=== PATIENT | female | born 1980 | race Caucasian/White ===

== ENCOUNTER 2016-11-18 19:59 | Emergency (ER) | payer SELFPAY ==
--- NOTE | 2016-11-18 20:12 | ER Document Report ---
ED Medical Screen (RME) - General Chief Complaint: Urinary Frequency Stated Complaint: POSSIBLE UTI Time Seen by Provider: 11/18/16 20:10 Notes: Patient has been having symptoms of urinary tract infection for the past 2 weeks. She is having frequency, burning, stinging, etc. She has been taking [id number] Pyridium without any relief of her symptoms. Has not had a fever. No vomiting. No flank pain. Looks well. History of appendectomy, C-sections. On no regular prescription medications. TRAVEL OUTSIDE OF THE [place] IN LAST 30 DAYS: No - Related Data Allergies/Adverse Reactions: promethazine HCl [From Phenergan] Allergy (Severe, Verified 11/18/16 20:03) Anaphylaxis Past Medical History Pulmonary Medical History: Reports: Hx Asthma Renal/ Medical History: Denies: Hx Peritoneal Dialysis Past Surgical History: Reports: Hx Appendectomy, Hx Section - x2, Hx Tubal Ligation - Immunizations Hx Diphtheria, Pertussis, Tetanus Vaccination: Yes Physical Exam - Vital signs Vitals: Temp Pulse Resp BP Pulse Ox 97.8 F 88 18 127/83 H 98 11/18/16 20:04 11/18/16 20:04 11/18/16 20:04 11/18/16 20:04 11/18/16 20:04 Course - Vital Signs Vital signs: Temp Pulse Resp BP Pulse Ox 97.8 F 88 18 127/83 H 98 11/18/16 20:04 11/18/16 20:04 11/18/16 20:04 11/18/16 20:04 11/18/16 20:04
[2016-11-18] MEDS ORDERED: PREDNISONE 20 MG TABLET PO ONE (20:29)
[2016-11-18] MEDS ORDERED: IBUPROFEN 600 MG TABLET PO ONE (20:29)
[2016-11-18] MEDS: ALBUTEROL SULFATE 0.083% NEB 2.5 MG/3 ML AMPUL NEB SCH ×2 (20:35→20:50)
[2016-11-18 20:52] LABS: APPEARANCE,URINE SLIGHTLY-CLOUDY; BILIRUBIN,URINE NEGATIVE (NEGATIVE); GLUCOSE, URINE NEGATIVE (NEGATIVE); KETONES,URINE NEGATIVE (NEGATIVE); LEUKOCYTE ESTERASE,URINE SMALL (NEGATIVE); NITRITE,URINE POSITIVE (NEGATIVE); PROTEIN,URINE 30 mg/dL (NEGATIVE); URINE SPECIFIC GRAVITY 1.011
[2016-11-18] MEDS ORDERED: NITROFURANTOIN MONOHYD/M-CRYST 100 MG CAPSULE PO ONE (20:57)
--- NOTE | 2016-11-18 21:06 | ER Document Report ---
ED GI/ - General Chief Complaint: Urinary Frequency Stated Complaint: POSSIBLE UTI Time Seen by Provider: 11/18/16 20:10 Mode of Arrival: Ambulatory Information source: Patient Notes: 36-year-old female presents to ED for complaints of burning with urination with frequency. She has been taken Azo [id number] for the last 2 weeks and the pain is gotten worse. Has a history of asthma states she has been very active today TRAVEL OUTSIDE OF THE [place] IN LAST 30 DAYS: No - HPI Patient complains to provider of: Other - Pain frequency and urgency with urination Onset: Other - 8 Timing/Duration: Intermittent, Worse Quality of pain: Burning Severity at maximum: Severe Severity in ED: Severe Pain Level: 5 Location: Other - Urination Vaginal bleeding (Compared to normal period): None Associated symptoms: Urinary frequency, Urinary urgency, Other - With urination Exacerbated by: Other - Urination Relieved by: Denies Similar symptoms previously: Yes Recently seen / treated by doctor: No - Related Data Allergies/Adverse Reactions: promethazine HCl [From Phenergan] Allergy (Severe, Verified 11/18/16 20:03) Anaphylaxis Past Medical History - General Information source: Patient - Social History Smoking Status: Current Every Day Smoker Cigarette use (# per day): Yes - 1/2-1 pack per day Chew tobacco use (# tins/day): No Smoking Education Provided: Yes - Less than 2 minutes Frequency of alcohol use: Social Drug Abuse: None Occupation: [employer] Lives with: Family Family History: Malignancy, Thyroid Disfunction. denies: Arthritis, CAD, COPD, CVA, DM, Hyperlipidemia, Hypertension Patient has suicidal ideation: No Patient has homicidal ideation: No - Past Medical History Cardiac Medical History: Reports: None Pulmonary Medical History: Reports: Hx Asthma EENT Medical History: Reports: None Neurological Medical History: Reports: Hx Migraine Endocrine Medical History: Reports: None Renal/ Medical History: Reports: None Malignancy Medical History: Reports: None GI Medical History: Reports: Hx Gastroesophageal Reflux Disease Musculoskeltal Medical History: Reports Hx Arthritis, Reports Hx Musculoskeletal Trauma Skin Medical History: Reports Hx MRSA Psychiatric Medical History: Reports: None Traumatic Medical History: Reports: Hx Fractures - Jaw Infectious Medical History: Reports: Hx MRSA Past Surgical History: Reports: Hx Appendectomy, Hx Section - x2, Hx Nose Surgery - Sinus surgery, Hx Tubal Ligation - Immunizations Hx Diphtheria, Pertussis, Tetanus Vaccination: Yes Review of Systems - Review of Systems Constitutional: No symptoms reported EENT: No symptoms reported Cardiovascular: No symptoms reported Respiratory: No symptoms reported Gastrointestinal: No symptoms reported Genitourinary: Burning, Frequency, Urgency Female Genitourinary: No symptoms reported Musculoskeletal: No symptoms reported Skin: No symptoms reported Hematologic/Lymphatic: No symptoms reported Neurological/Psychological: No symptoms reported -: Yes All other systems reviewed and negative Physical Exam - Vital signs Vitals: Temp Pulse Resp BP Pulse Ox 97.8 F 88 18 127/83 H 98 11/18/16 20:04 11/18/16 20:04 11/18/16 20:04 11/18/16 20:04 11/18/16 20:04 Interpretation: Normal - General General appearance: Appears well, Alert - HEENT Head: Normocephalic, Atraumatic Eyes: Normal Pupils: PERRL - Respiratory Respiratory status: No respiratory distress Chest status: Nontender Breath sounds: Nonproductive cough, Wheezing Chest palpation: Normal - Cardiovascular Rhythm: Regular Heart sounds: Normal auscultation Murmur: No - Abdominal Inspection: Normal Distension: No distension Bowel sounds: Normal Tenderness: Nontender Organomegaly: No organomegaly Notes: With urination burning frequency urgency - Back Back: Normal, Nontender - Extremities General upper extremity: Normal inspection, Nontender, Normal color, Normal ROM , Normal temperature General lower extremity: Normal inspection, Nontender, Normal color, Normal ROM , Normal temperature, Normal weight bearing. No: Glenys's sign - Neurological Neuro grossly intact: Yes Cognition: Normal Orientation: AAOx4 Sabrina Coma Scale Eye Opening: Spontaneous Sabrina Coma Scale Verbal: Oriented Dunlevy Coma Scale Motor: Obeys Commands Dunlevy Coma Scale Total: 15 Speech: Normal Motor strength normal: LUE, RUE, LLE, RLE Sensory: Normal - Psychological Associated symptoms: Normal affect, Normal mood - Skin Skin Temperature: Warm Skin Moisture: Dry Skin Color: Normal Course - Re-evaluation Re-evalutation: 11/18/16 21:14 The history of asthma and his wheezing went on assessment. Positive for UTI. Patient treated with Macrobid prednisone and ibuprofen and albuterol. Patient sent home with prescriptions for albuterol prednisone and Macrobid. Patient to follow-up with primary doctor. - Vital Signs Vital signs: Temp Pulse Resp BP Pulse Ox 97.8 F 88 18 127/83 H 98 11/18/16 20:04 11/18/16 20:04 11/18/16 20:04 11/18/16 20:04 11/18/16 20:04 - Laboratory Laboratory results interpreted by me: 11/18/16 20:26 Urine Protein 30 H Urine Nitrite POSITIVE H Urine Urobilinogen 4.0 H Ur Leukocyte Esterase SMALL H Urine Ascorbic Acid 20 H Discharge - Discharge Clinical Impression: UTI (urinary tract infection) Qualifiers: Urinary tract infection type: site unspecified Hematuria presence: without hematuria Qualified Code(s): N39.0 - Urinary tract infection, site not specified Asthma Qualifiers: Asthma severity: unspecified severity Asthma complication type: with acute exacerbation Qualified Code(s): J45.901 - Unspecified asthma with (acute) exacerbation Condition: Stable Disposition: HOME, SELF-CARE Instructions: Family Physicians / Practices Additional Instructions: URINARY TRACT INFECTION: Your evaluation indicates that you have a urinary tract infection. This is due to germs growing in the bladder. This is a common problem. This infection usually responds quickly to antibiotics. Your antibiotic should be taken exactly as prescribed. Drink plenty of fluids -- three to four quarts a day. Occasionally, a bladder anesthetic will be prescribed to help stop the feeling of urgency until the antibiotic has a chance to clear the infection. This may cause your urine to be dark orange. Certain urine infections require a culture. If the doctor obtained a culture, the results will be back in two days. You should call to see if a change in treatment is needed. A repeat urinalysis after you finish treatment is often recommended. The physician will let you know if further testing is required. Call the doctor if you develop fever, chills, flank pain, inability to urinate, or blood in the urine. ASTHMA: You have been diagnosed as having asthma. This is a condition where there is episodic tightness in the bronchial tubes. Allergies, infections, and polluted or cold air may be contributing factors. Emergency treatment of a severe asthma attack may include adrenaline shots , or bronchodilator aerosol. You may feel lightheaded, have a decreased exercise tolerance and a rapid pulse for an hour or two. Rest and get plenty of fluids. Home treatment of asthma requires bronchodilator drugs. These can be administered by injection, inhalation, or by mouth. Antibiotics and corticosteroids may be required for some patients. You should avoid chemical fumes, dusts, pollens, and exercising in very cold or dry air. If you smoke, stop!! If you develop a fever, increased wheezing, chest pain, or severe shortness of breath, you should contact the doctor immediately. STEROID MEDICATION: You have been given an injection of or oral medicine of the cortisone/ steroid class. This medication is used to control inflammation or allergy. Anant t is usually only given for a short period of time, until the acute process subsides. There are usually no side effects from short-term use of cortisone-like medications. Some persons feel an increased sense of well-being and are not sleepy at bedtime. Long-term use of cortisone medications is best avoided, unless required for a severe condition. If your condition does not remit, or relapses after the course of corticosteroid medication, you should consult your physician. INHALED BRONCHODILATORS: You have received treatment(s) of and/or prescription for an inhaled bronchodilator -- a medication which stimulates the airways in the lung to dilate. This improves the flow of air in asthma, bronchitis, and emphysema. These medicines have some similarity to adrenaline, and can cause similar side effects: shakiness, racing heart, and a sense of nervousness. These side effects decrease with time. Contact your doctor if these side effects are severe. Do not over-use the medicine. Too-frequent use of the inhaler may make it ineffective. Call your doctor if the inhaler is not controlling your symptoms at the prescribed doses. SMOKING: If you smoke, you should stop smoking. The tar and chemicals in cigarette smoke are harmful. Smoking has been shown to cause: emphysema chronic bronchitis lung cancer mouth and throat cancer stomach and pancreas cancer premature aging defects In addition, smoking increases ear and lung infections in children of smokers. NITROFURANTOIN (MACRODANTIN, MACROBID): You have received a prescription for nitrofurantoin (Macrodantin). This antibiotic is used for urinary tract infections. Women who are or nursing should notify the physician before taking this medicine. If you have ever had a problem caused by this medication in the past, be sure the physician is aware of it. Common side effects of this medicine include nausea, vomiting, or decreased appetite. Notify your physician if these side effects become severe. Immediately stop this medicine and call the physician if you develop cough , shortness of breath, chest pain, weakness, jaundice (yellow color of the skin and whites of the eyes), or a skin rash. FOLLOW-UP CARE: If you have been referred to a physician for follow-up care, call the physician s office for an appointment as you were instructed or within the next two days. If you experience worsening or a significant change in your symptoms, notify the physician immediately or return to the Emergency Department at any time for re-evaluation. Prescriptions: Albuterol Sulfate [Proair HFA Inhalation Aerosol 8.5 gm MDI] 2 puff IH Q4H PRN # 1 mdi PRN Reason: Nitrofurantoin/Nitrofuran Mac [Macrobid 100 mg Capsule] 1 tab PO BID #20 capsule Prednisone [Sterapred Ds] 1 pkg PO ASDIR PRN 12 Days PRN Reason: Forms: Smoking Cessation Education
[2016-11-18 21:15] VITALS: BP 124/73
== END 2016-11-18 21:16 | disposition home or self-care (01) ==
LOC: ER 19:59
DX: N39.0 Urinary tract infection, site not specified (principal); J45.901 Unspecified asthma with (acute) exacerbation; R35.0 Frequency of micturition; R30.9 Painful micturition, unspecified; F17.210 Nicotine dependence, cigarettes, uncomplicated
CPT/HCPCS: 94640 ×2; 99283; 87086; 87088; 81001; J7512

== ENCOUNTER 2017-04-26 22:56 | Emergency (ER) | payer SELFPAY ==
[2017-04-26 23:06] VITALS: BP 96/76
[2017-04-27 01:05] LABS: ABSOLUTE EOSINOPHILS # (AUTO) 0.6 10^3/uL (0.0-0.6); ABSOLUTE LYMPHOCYTES (AUTO) 3.1 10^3/uL (0.5-4.7); ABSOLUTE MONOCYTES (AUTO) 0.7 10^3/uL (0.1-1.4); ABSOLUTE NEUT (AUTO) 5.7 10^3/uL (1.7-8.2); BASOPHILS % (AUTO) 0.1 % (0-2); EOSINOPHILS % (AUTO) 5.8 % (0-6); HEMATOCRIT 40.6 % (36.0-47.0); HEMOGLOBIN 14.2 g/dL (12.0-15.5); LYMPHOCYTES % (AUTO) 30.5 % (13-45); MEAN CORPUSCULAR HEMOGLOBIN 35.1 pg (27.0-33.4); MEAN CORPUSCULAR HGB CONC 34.9 g/dL (32.0-36.0); MEAN CORPUSCULAR VOLUME 101 fl (80-97); MONOCYTES % (AUTO) 7.3 % (3-13); RED BLOOD COUNT 4.04 10^6/uL (3.72-5.28); RED CELL DISTRIBUTION WIDTH 12.9 % (11.5-14.0); SEGMENTED NEUTROPHILS % (AUTO) 56.3 % (42-78); WHITE BLOOD COUNT 10.2 10^3/uL (4.0-10.5)
[2017-04-27 01:21] LABS: APPEARANCE,URINE CLEAR; BILIRUBIN,URINE NEGATIVE (NEGATIVE); GLUCOSE, URINE NEGATIVE (NEGATIVE); KETONES,URINE NEGATIVE (NEGATIVE); LEUKOCYTE ESTERASE,URINE NEGATIVE (NEGATIVE); NITRITE,URINE NEGATIVE (NEGATIVE); PROTEIN,URINE NEGATIVE (NEGATIVE); URINE SPECIFIC GRAVITY 1.028; UROBILINOGEN,URINE NEGATIVE mg/dL (<2.0)
[2017-04-27 01:27] LABS: ALANINE AMINOTRANSFERASE 19 U/L (9-52); ALBUMIN 4.6 g/dL (3.5-5.0); ALKALINE PHOSPHATASE 92 U/L (38-126); ANION GAP 13 (5-19); ASPARTATE AMINO TRANSFERASE 18 U/L (14-36); BILIRUBIN,DIRECT 0.1 mg/dL (0.0-0.4); BILIRUBIN,TOTAL 0.4 mg/dL (0.2-1.3); BLOOD UREA NITROGEN 16 mg/dL (7-20); CALCIUM 9.8 mg/dL (8.4-10.2); CARBON DIOXIDE 26 mmol/L (22-30); CHLORIDE 106 mmol/L (98-107); CREATININE RESULT 1.07 mg/dL (0.52-1.25); GLUCOSE 95 mg/dL (75-110); LIPASE 124.4 U/L (23-300); POTASSIUM 3.5 mmol/L (3.6-5.0); SODIUM 144.5 mmol/L (137-145); TOTAL PROTEIN 7.4 g/dL (6.3-8.2)
[2017-04-27] MEDS ORDERED: LORAZEPAM 1 MG TABLET PO ONE (02:11)
--- NOTE | 2017-04-27 02:12 | ER Document Report ---
ED General - General Chief Complaint: Foreign Body in Vagina Stated Complaint: STOMACH PAIN Time Seen by Provider: 04/27/17 00:23 Mode of Arrival: Ambulatory Information source: Patient Notes: Patient is a 36-year-old female comes emergency room with her boyfriend and states that this morning patient started with her. When her boyfriend came back to bed he got excited and they had intercourse. Patient forgot to tell them that she had a tampax inserted and did not think about it until after she was completely done. She states that they have attempted to find it today and are unable to. Patient states that she was embarrassed to come in but since he could not find it they felt it necessary. Patient denies any fevers or any discharges. States that it has been less than 10-12 hours. TRAVEL OUTSIDE OF THE [place] IN LAST 30 DAYS: No - HPI Patient complains to provider of: Foreign body vagina Onset: This morning - Proximately 10-12 hours in vaginal tract Onset/Duration: Sudden Quality of pain: No pain Severity: Mild Pain Level: 1 Associated symptoms: None Exacerbated by: Denies Relieved by: Denies Similar symptoms previously: No Recently seen / treated by doctor: No - Related Data Allergies/Adverse Reactions: promethazine HCl [From Phenergan] Allergy (Severe, Verified 11/18/16 20:03) Anaphylaxis Past Medical History - General Information source: Patient - Social History Smoking Status: Current Some Day Smoker Cigarette use (# per day): Yes - Half-pack a day Chew tobacco use (# tins/day): No Frequency of alcohol use: Rare Drug Abuse: None Family History: Malignancy, Thyroid Disfunction. denies: Arthritis, CAD, COPD, CVA, DM, Hyperlipidemia, Hypertension Patient has suicidal ideation: No Patient has homicidal ideation: No Pulmonary Medical History: Reports: Hx Asthma Neurological Medical History: Reports: Hx Migraine Renal/ Medical History: Denies: Hx Peritoneal Dialysis GI Medical History: Reports: Hx Gastroesophageal Reflux Disease Musculoskeltal Medical History: Reports Hx Arthritis, Reports Hx Musculoskeletal Trauma Skin Medical History: Reports Hx MRSA Traumatic Medical History: Reports: Hx Fractures - Jaw Infectious Medical History: Reports: Hx MRSA Past Surgical History: Reports: Hx Appendectomy, Hx Section - x2, Hx Nose Surgery - Sinus surgery, Hx Tubal Ligation - Immunizations Hx Diphtheria, Pertussis, Tetanus Vaccination: Yes Review of Systems - Review of Systems Constitutional: No symptoms reported EENT: No symptoms reported Cardiovascular: No symptoms reported Respiratory: No symptoms reported Gastrointestinal: No symptoms reported Genitourinary: No symptoms reported Female Genitourinary: Vaginal odor - Complaint of foreign body and vaginal canal Musculoskeletal: No symptoms reported Skin: No symptoms reported Hematologic/Lymphatic: No symptoms reported Neurological/Psychological: No symptoms reported -: Yes All other systems reviewed and negative Physical Exam - Vital signs Vitals: Temp Pulse Resp BP Pulse Ox 97.8 F 65 16 96/76 L 99 04/26/17 23:04 04/26/17 23:04 04/26/17 23:04 04/26/17 23:04 04/26/17 23:04 Interpretation: Hypotensive, Other - Nonsymptomatic patient is awake alert and oriented says her blood pressure usually runs low. - General General appearance: Appears well - Respiratory Respiratory status: No respiratory distress Chest status: Nontender Breath sounds: Normal. No: Decreased air movement, Nonproductive cough, Productive cough, Rales, Rhonchi, Stridor, Wheezing, Other - Cardiovascular Rhythm: Regular Heart sounds: Normal auscultation Murmur: No - Genitourinary External exam: Normal Speculum exam: Cervix closed, Other - Pelvic exam shows that there is a tampon wedged in the vaginal vault. With forceps I removed it without any disruption or any discomfort or pain. Once out I was able to examine the vaginal canal and the vaginal vault cervix all appears normal there is no discharge slight amount of tinged blood coming from the office secondary to patient's menstrual period but no sign of any type of infection the Vaginal bleeding: Moderate - Neurological Neuro grossly intact: Yes Cognition: Normal Orientation: AAOx4 Sabrina Coma Scale Eye Opening: Spontaneous Sabrina Coma Scale Verbal: Oriented Sabrina Coma Scale Motor: Obeys Commands Sabrina Coma Scale Total: 15 Speech: Normal Course - Vital Signs Vital signs: Temp Pulse Resp BP Pulse Ox 97.8 F 65 16 96/76 L 99 04/26/17 23:04 04/26/17 23:04 04/26/17 23:04 04/26/17 23:04 04/26/17 23:04 - Laboratory Result Diagrams: 04/27/17 00:50 04/27/17 00:50 Laboratory results interpreted by me: 04/27/17 04/27/1704/27/17 00:50 00:50 00:50 MCV 101 H MCH 35.1 H Potassium 3.5 L Est GFR (Non-Af Amer) 57 L Urine Blood SMALL H - Transfer of Care Notes: After pelvic exam was completed I felt that patient does not need antibiotic therapy at this time. She has normal-appearing tissue and the tampon is only and therefore 10 hours or less. 04/27/17 02:15 Patient's Discharge - Discharge Clinical Impression: Foreign body in vagina Qualifiers: Encounter type: initial encounter Qualified Code(s): T19.2XXA - Foreign body in vulva and vagina, initial encounter Condition: Good Disposition: HOME, SELF-CARE Instructions: Foreign Body ([facility]) Additional Instructions: Tampon removal, as we have discussed we removed a bloody tampon from your vaginal tract. The area is clean and there is no sign of any type of infection. Therefore you do not need to be on antibiotics at this present time. However should you spike a fever or have any increasing discomfort or discharge please return to ER for recheck. Forms: Smoking Cessation Education
== END 2017-04-27 02:30 | disposition home or self-care (01) ==
LOC: ER 22:56
DX: T19.2XXA Foreign body in vulva and vagina, initial encounter (principal); X58.XXXA Exposure to other specified factors, initial encounter; F17.210 Nicotine dependence, cigarettes, uncomplicated; J45.909 Unspecified asthma, uncomplicated; Z86.14 Personal history of Methicillin resistant Staphylococcus aureus infection; Z87.892 Personal history of anaphylaxis; Z88.8 Allergy status to other drugs, medicaments and biological substances
CPT/HCPCS: 36415; 80053; 81001; 81025; 83690; 85025; 99283

== ENCOUNTER 2017-08-15 19:56 | Emergency (ER) | payer SELFPAY ==
[2017-08-15] MEDS ORDERED: MORPHINE SULFATE IR 15 MG TABLET PO ONE (21:47)
[2017-08-15] MEDS ORDERED: SULFAMETHOXAZOLE/TRIMETHOPRIM 800-160 MG TABLET PO ONE (21:48)
[2017-08-15] MEDS ORDERED: CEPHALEXIN 500 MG CAPSULE PO ONE (21:48)
[2017-08-15] MEDS ORDERED: ACETAMINOPHEN 325 MG TABLET PO ONE (21:48)
[2017-08-15] MEDS ORDERED: IBUPROFEN 600 MG TABLET PO ONE (21:48)
--- NOTE | 2017-08-15 21:50 | ER Document Report ---
ED General - General Chief Complaint: Abscess Stated Complaint: RIGHT ARM/HAND PAIN Time Seen by Provider: 08/15/17 21:32 Notes: Patient is a 36 year old female with a history of multiple recurrences of MRSA abscesses who presents with 2 abscesses. She reports that one is in her left axilla and the other is on her left buttock. Patient states that these areas started several days ago and have become increasingly large and painful. She notes a severe, constant, throbbing pain to the affected areas worsened by touching them. Nothing improves the pain. She states this feels similar to when she has had abscesses in the past. She denies any fever or constitutional symptoms. She has not seen her primary care doctor regarding today's concerns. TRAVEL OUTSIDE OF THE [place] IN LAST 30 DAYS: No - Related Data Allergies/Adverse Reactions: promethazine HCl [From Phenergan] Allergy (Severe, Verified 11/18/16 20:03) Anaphylaxis Past Medical History - General Information source: Patient - Social History Smoking Status: Never Smoker Frequency of alcohol use: None Drug Abuse: None Lives with: Family Family History: Malignancy, Thyroid Disfunction. denies: Arthritis, CAD, COPD, CVA, DM, Hyperlipidemia, Hypertension Patient has suicidal ideation: No Patient has homicidal ideation: No Pulmonary Medical History: Reports: Hx Asthma Neurological Medical History: Reports: Hx Migraine Renal/ Medical History: Denies: Hx Peritoneal Dialysis GI Medical History: Reports: Hx Gastroesophageal Reflux Disease Musculoskeltal Medical History: Reports Hx Arthritis, Reports Hx Musculoskeletal Trauma Skin Medical History: Reports Hx MRSA Traumatic Medical History: Reports: Hx Fractures - Jaw Infectious Medical History: Reports: Hx MRSA Past Surgical History: Reports: Hx Appendectomy, Hx Section - x2, Hx Nose Surgery - Sinus surgery, Hx Tubal Ligation - Immunizations Hx Diphtheria, Pertussis, Tetanus Vaccination: Yes Review of Systems - Review of Systems Notes: Constitutional: Negative for fever. HENT: Negative for sore throat. Eyes: Negative for visual changes. Cardiovascular: Negative for chest pain. Respiratory: Negative for shortness of breath. Gastrointestinal: Negative for abdominal pain, vomiting or diarrhea. Genitourinary: Negative for dysuria. Musculoskeletal: Negative for back pain. Skin: Positive for multiple abscesses Neurological: Negative for headaches, weakness or numbness. 10 point ROS negative except as marked above and in HPI. Physical Exam - Vital signs Vitals: Temp Pulse Resp BP Pulse Ox 98.4 F 83 18 131/95 H 99 08/15/17 20:20 08/15/17 20:20 08/15/17 20:20 08/15/17 20:20 08/15/17 20:20 Interpretation: Normal Notes: PHYSICAL EXAMINATION: GENERAL: Well-appearing, well-nourished and in no acute distress. HEAD: Atraumatic, normocephalic. EYES: Pupils equal round and reactive to light, extraocular movements intact, sclera anicteric, conjunctiva are normal. ENT: nares patent, oropharynx clear without exudates. Moist mucous membranes. NECK: Normal range of motion, supple without lymphadenopathy LUNGS: Breath sounds clear to auscultation bilaterally and equal. No wheezes rales or rhonchi. HEART: Regular rate and rhythm without murmurs ABDOMEN: Soft, nontender, normoactive bowel sounds. No guarding, no rebound. No masses appreciated. EXTREMITIES: Normal range of motion, no pitting or edema. No cyanosis. NEUROLOGICAL: No focal neurological deficits. Moves all extremities spontaneously and on command. PSYCH: Normal mood, normal affect. SKIN: Warm, Dry, normal turgor, abscesses as described in course and procedure note Course - Re-evaluation Re-evalutation: 08/15/17 21:48 Patient presents with an abscess in 2 separate locations. She has a 1 x 2 cm abscess on her lower left buttock as well as a one by one similar abscess in her left axilla. Both have been incised and drained with expression of purulent material. Patient does have a surrounding cellulitis to both areas and therefore will be started on both Bactrim and cephalexin for coverage of staph and strep. She is otherwise well in appearance, vitals within normal limits. No indication for labs or imaging. At this time will discharge with return precautions and follow-up recommendations. Verbal discharge instructions given a the bedside and opportunity for questions given. Medication warnings reviewed. Patient is in agreement with this plan and has verbalized understanding of return precautions and the need for primary care follow-up in the next 24-72 hours. - Vital Signs Vital signs: Temp Pulse Resp BP Pulse Ox 98.9 F 85 16 135/84 H 99 08/15/17 22:41 08/15/17 22:41 08/15/17 22:41 08/15/17 22:41 08/15/17 22:41 Procedures - Incision and Drainage Left Buttock Type: Simple Anesthetic type: 1% Lidocaine mL's of anesthetic: 2 Blade size: 11 I&D procedure: Betadine prep applied Incision Method: Incision made by scalpel Amount/type of drainage: 4 cc of purulent expression Left axilla Type: Simple Anesthetic type: 1% Lidocaine mL's of anesthetic: 1 Blade size: 11 I&D procedure: Betadine prep applied Incision Method: Incision made by scalpel Amount/type of drainage: 3 cc of purulent expression Discharge - Discharge Clinical Impression: Left buttock abscess, Abscess of left axilla Condition: Good Disposition: HOME, SELF-CARE Additional Instructions: You were seen for an abscess that required drainage. Please clean this area with soap and water twice daily and apply a topical antibiotic. Dress the area after each cleaning. Please return if you develop fever, vomiting, the pain at the site worsens, you notice spreading redness from the area, or you have any other symptoms that are concerning to you. Prescriptions: Cephalexin Monohydrate [Keflex 500 mg Capsule] 500 mg PO Q6H 5 Days capsule Sulfamethoxazole/Trimethoprim [Bactrim Ds Tablet] 2 tab PO BID #28 tablet
[2017-08-15 22:42] VITALS: BP 135/84
== END 2017-08-15 22:43 | disposition home or self-care (01) ==
LOC: ER 19:56
DX: L02.31 Cutaneous abscess of buttock (principal); L02.412 Cutaneous abscess of left axilla; L03.317 Cellulitis of buttock; L03.112 Cellulitis of left axilla; J45.909 Unspecified asthma, uncomplicated; Z87.892 Personal history of anaphylaxis; Z88.8 Allergy status to other drugs, medicaments and biological substances; Z86.14 Personal history of Methicillin resistant Staphylococcus aureus infection
CPT/HCPCS: 99283

== ENCOUNTER 2017-12-19 20:03 | Emergency (ER) | payer SELFPAY ==
[2017-12-19 20:09] VITALS: BP 123/70
[2017-12-19] MEDS ORDERED: ONDANSETRON 4 MG TAB.RAPDIS PO ONE (21:53)
[2017-12-19] MEDS ORDERED: CEPHALEXIN 500 MG CAPSULE PO ONE (21:53)
[2017-12-19] MEDS ORDERED: LIDOCAINE 1% INJ-PF (10 MG/ML) 30 ML SDV INJ ONE (21:53)
[2017-12-19] MEDS ORDERED: OXYCODONE-ACETAMINOPHEN 5-325 MG TABLET PO ONE (21:53)
[2017-12-19] MEDS ORDERED: SULFAMETHOXAZOLE/TRIMETHOPRIM 800-160 MG TABLET PO ONE (21:53)
--- NOTE | 2017-12-19 21:54 | ER Document Report ---
ED Skin Rash/Insect Bite/Abscs - General Chief Complaint: Abscess Stated Complaint: POSSIBLE ABSCESS Time Seen by Provider: 12/19/17 21:49 Notes: Patient is a 37-year-old female comes emergency department for chief complaint of an abscess on the right buttock area which has been worsening for the past 3 days, she states she is complaining of some chills today. She denies nausea vomiting. She states she has had this multiple times in the past, and MRSA in the past. She is not a diabetic. She denies any other complaints. TRAVEL OUTSIDE OF THE [place] IN LAST 30 DAYS: No - Related Data Allergies/Adverse Reactions: promethazine HCl [From Phenergan] Allergy (Severe, Verified 11/18/16 20:03) Anaphylaxis Past Medical History - General Information source: Patient - Social History Smoking Status: Current Every Day Smoker Chew tobacco use (# tins/day): No Frequency of alcohol use: None Drug Abuse: None Lives with: Family Family History: Malignancy, Thyroid Disfunction. denies: Arthritis, CAD, COPD, CVA, DM, Hyperlipidemia, Hypertension Patient has suicidal ideation: No Patient has homicidal ideation: No Pulmonary Medical History: Reports: Hx Asthma Neurological Medical History: Reports: Hx Migraine Renal/ Medical History: Denies: Hx Peritoneal Dialysis GI Medical History: Reports: Hx Gastroesophageal Reflux Disease Musculoskeletal Medical History: Reports Hx Arthritis, Reports Hx Musculoskeletal Trauma Skin Medical History: Reports Hx MRSA Traumatic Medical History: Reports: Hx Fractures - Jaw Infectious Medical History: Reports: Hx MRSA Past Surgical History: Reports: Hx Appendectomy, Hx Section - x2, Hx Nose Surgery - Sinus surgery, Hx Tubal Ligation - Immunizations Hx Diphtheria, Pertussis, Tetanus Vaccination: Yes Review of Systems - Review of Systems Constitutional: No symptoms reported EENT: No symptoms reported Cardiovascular: No symptoms reported Respiratory: No symptoms reported Gastrointestinal: No symptoms reported Genitourinary: No symptoms reported Female Genitourinary: No symptoms reported Musculoskeletal: No symptoms reported Skin: See HPI Hematologic/Lymphatic: No symptoms reported Neurological/Psychological: No symptoms reported Physical Exam - Vital signs Vitals: Temp Pulse Resp BP Pulse Ox 99.2 F 88 16 123/70 100 12/19/17 20:08 12/19/17 20:08 12/19/17 20:08 12/19/17 20:08 08/13/18 20:08 - Notes Notes: GENERAL: Alert, interacts well. No acute distress. HEAD: Normocephalic, atraumatic. EYES: Pupils equal, round, and reactive to light. Extraocular movements intact. ENT: Oral mucosa moist, tongue midline. NECK: Full range of motion. Supple. Trachea midline. LUNGS: Clear to auscultation bilaterally, no wheezes, rales, or rhonchi. No respiratory distress. HEART: Regular rate and rhythm. No murmur ABDOMEN: Soft, non-tender. Non-distended. Bowel sounds present in all 4 quadrants. EXTREMITIES: Moves all 4 extremities spontaneously. No edema, normal radial and dorsalis pedis pulses bilaterally. No cyanosis. BACK: no cervical, thoracic, lumbar midline tenderness. No saddle anesthesia, normal distal neurovascular exam. NEUROLOGICAL: Alert and oriented x3. Normal speech. [cranial nerves II through XII grossly intact]. PSYCH: Normal affect, normal mood. SKIN: Indurated and fluctuant abscess over the right mid buttock with moderately large area of surrounding cellulitis extending several centimeters away from this. No extension towards or involvement of the rectum or gluteal cleft. Remaining skin exam is unremarkable. Exam performed with Enedelia PRAKASH at bedside. Course - Re-evaluation Re-evalutation: Patient with gluteal abscess and cellulitis, no involvement of the gluteal cleft or perianal area. No fever, no tachycardia or hypotension, patient is not a diabetic. Abscess was incised, drained, cleaned, packed, patient placed on antibiotics, discussed care, discussed return precautions, patient states understanding and agreement. - Vital Signs Vital signs: Temp Pulse Resp BP Pulse Ox 99.2 F 88 16 123/70 100 12/19/17 20:08 12/19/17 20:08 12/19/17 20:08 12/19/17 20:08 12/19/17 20:08 Procedures - Incision and Drainage Right gluteal Type: Single Anesthetic type: 1% Lidocaine mL's of anesthetic: 6 Blade size: 11 I&D procedure: Shurclens applied, Iodoform packing placed, Sterile dressing applied Incision Method: Incision made by scalpel Amount/type of drainage: 5 cc of purulent drainage; small amount of bleeding Discharge - Discharge Clinical Impression: Abscess and cellulitis of gluteal region Condition: Stable Disposition: HOME, SELF-CARE Additional Instructions: The abscess has been drained. Take the packing out in 2 days. Clean area with soap and water, dab dry, reapply absorbent dressing. Take antibiotics as prescribed. Return if you worsen including spreading redness, fever, vomiting, or any other concerning or worsening symptoms. Prescriptions: Cephalexin Monohydrate [Keflex 500 mg Capsule] 500 mg PO QID #28 capsule Hydrocodone/Acetaminophen [[place] 5-325 mg Tablet] 1 - 2 tab PO ASDIR #8 tablet Sulfamethoxazole/Trimethoprim [Bactrim Ds Tablet] 1 each PO BID #14 tablet
[2017-12-19] MEDS ORDERED: HYDROCODONE/ACETAMINOPHEN 5-325 MG (6 TAB/ER DISP) PO PRN (23:40)
== END 2017-12-19 23:51 | disposition home or self-care (01) ==
LOC: ER 20:03
DX: L02.31 Cutaneous abscess of buttock (principal); L03.317 Cellulitis of buttock; R68.83 Chills (without fever); J45.909 Unspecified asthma, uncomplicated; Z86.14 Personal history of Methicillin resistant Staphylococcus aureus infection; Z88.8 Allergy status to other drugs, medicaments and biological substances
CPT/HCPCS: 99283; 10060; A6266; S0119; J3490

== ENCOUNTER 2017-12-26 18:29 | Emergency (ER) | payer SELFPAY ==
[2017-12-26] MEDS ORDERED: LIDOCAINE 1% INJ-PF (10 MG/ML) 30 ML SDV INJ ONE (21:04)
--- NOTE | 2017-12-26 21:10 | ER Document Report ---
ED Skin Rash/Insect Bite/Abscs <THAI DENG - Last Filed: 12/26/17 21:37> - General Mode of Arrival: Ambulatory Information source: Patient TRAVEL OUTSIDE OF THE [place] IN LAST 30 DAYS: No - HPI Patient complains to provider of: Tender/swollen area Onset: Last week Onset/Duration: Worse Quality of pain: Sharp, Stabbing, Throbbing Severity: Severe Pain Level: 5 Skin Character: Abscess Quality of rash: Painful Exacerbated by: Supine, Sitting, Standing, Movement, Walking Relieved by: Denies Similar symptoms previously: Yes Recently seen / treated by doctor: Yes <ANDREW WONG - Last Filed: 12/27/17 02:23> - General Chief Complaint: Abscess Stated Complaint: ABSCESS Time Seen by Provider: 12/26/17 21:04 Notes: 37-year-old female presents to ED for complaint of a worsening abscess to her right buttocks area. She states she came into the emergency room 3 days ago and had a I&D done and they gave her Bactrim and Keflex. She states she has had abscesses and MRSA in the past. She states she is not at the diabetic. She states she just cannot sit or lay on her buttocks due to the pain. ( ANDREW WONG) - Related Data Allergies/Adverse Reactions: promethazine HCl [From Phenergan] Allergy (Severe, Verified 11/18/16 20:03) Anaphylaxis Past Medical History - General Information source: Patient - Social History Smoking Status: Current Every Day Smoker Cigarette use (# per day): Yes Smoking Education Provided: Yes - 4 days Frequency of alcohol use: None Drug Abuse: None Lives with: Spouse/Significant other Family History: Malignancy, Thyroid Disfunction. denies: Arthritis, CAD, COPD, CVA, DM, Hyperlipidemia, Hypertension Patient has suicidal ideation: No Patient has homicidal ideation: No - Past Medical History Cardiac Medical History: Reports: None Pulmonary Medical History: Reports: Hx Asthma EENT Medical History: Reports: None Neurological Medical History: Reports: Hx Migraine Endocrine Medical History: Reports: None Renal/ Medical History: Reports: None Malignancy Medical History: Reports: None GI Medical History: Reports: Hx Gastroesophageal Reflux Disease Musculoskeletal Medical History: Reports Hx Arthritis, Reports Hx Musculoskeletal Trauma Skin Medical History: Reports Hx MRSA Psychiatric Medical History: Reports: None Traumatic Medical History: Reports: Hx Fractures - Jaw Infectious Medical History: Reports: Hx MRSA Past Surgical History: Reports: Hx Appendectomy, Hx Section - x2, Hx Nose Surgery - Sinus surgery, Hx Tubal Ligation - Immunizations Hx Diphtheria, Pertussis, Tetanus Vaccination: Yes <ANDREW WONG - Last Filed: 12/27/17 02:23> Review of Systems - Review of Systems Constitutional: No symptoms reported EENT: No symptoms reported Cardiovascular: No symptoms reported Respiratory: No symptoms reported Gastrointestinal: No symptoms reported Genitourinary: No symptoms reported Female Genitourinary: No symptoms reported Musculoskeletal: No symptoms reported Skin: Other - abscess right buttocks Hematologic/Lymphatic: No symptoms reported Neurological/Psychological: No symptoms reported -: Yes All other systems reviewed and negative <ANDREW WONG - Last Filed: 12/27/17 02:23> Physical Exam - Vital signs Interpretation: Normal - General General appearance: Appears well, Alert - HEENT Head: Normocephalic, Atraumatic Eyes: Normal Pupils: PERRL - Respiratory Respiratory status: No respiratory distress Chest status: Nontender Breath sounds: Normal Chest palpation: Normal - Cardiovascular Rhythm: Regular Heart sounds: Normal auscultation Murmur: No - Abdominal Inspection: Normal Distension: No distension Bowel sounds: Normal Tenderness: Nontender Organomegaly: No organomegaly - Back Back: Normal, Nontender - Extremities General upper extremity: Normal inspection, Nontender, Normal color, Normal ROM , Normal temperature General lower extremity: Normal inspection, Nontender, Normal color, Normal ROM , Normal temperature, Normal weight bearing. No: Glenys's sign - Neurological Neuro grossly intact: Yes Cognition: Normal Orientation: AAOx4 Sabrina Coma Scale Eye Opening: Spontaneous [place]rina Coma Scale Verbal: Oriented Sabrina Coma Scale Motor: Obeys Commands [place] Coma Scale Total: 15 Speech: Normal Motor strength normal: LUE, RUE, LLE, RLE Sensory: Normal - Psychological Associated symptoms: Normal affect, Normal mood - Skin Skin Temperature: Warm Skin Moisture: Dry Skin Color: Normal Skin irregularity: Abscess Location of irregularity: Other - right buttocks <ANDREW WONG - Last Filed: 12/27/17 02:23> - Vital signs Vitals: Temp Pulse Resp BP Pulse Ox 98.0 F 90 16 133/82 H 97 12/26/17 18:35 08/20/18 18:35 12/26/17 18:35 12/26/17 18:35 12/26/17 18:35 Course <THAI DENG - Last Filed: 12/26/17 21:37> <ANDREW WONG - Last Filed: 12/27/17 02:23> - Re-evaluation Re-evalutation: 12/26/17 23:24 Dr. Deng was consulted and evaluated the abscess with the ultrasound. the Pocket was marked with marker pen and I&D was I&D was completed (ANDREW WONG) - Vital Signs Vital signs: Temp Pulse Resp BP Pulse Ox 97.6 F 89 16 126/73 H 96 12/26/17 22:41 12/26/17 22:41 12/26/17 22:41 12/26/17 22:41 12/26/17 22:41 Procedures - Ultrasound/Bedside Ultrasound/Bedside Time completed: 21:37 - Soft tissue ultrasound to assess for abscess was obtained using transverse and sagittal views. There is a 3 x 3 cm abscess approximately 1 cm from the surface. There is associated cobblestoning which could indicate cellulitis. There is a definitive border. <THAI DENG - Last Filed: 12/26/17 21:37> - Incision and Drainage Right Buttock Time completed: 22:30 Type: Simple Anesthetic type: 1% Lidocaine Blade size: 11 I&D procedure: Shurclens applied, Iodoform packing placed Incision Method: Incision made by scalpel Amount/type of drainage: large amound purulent drainage <ANDREW WONG - Last Filed: 12/27/17 02:23> Discharge <THAI DENG - Last Filed: 12/26/17 21:37> <ANRDEW WONG - Last Filed: 12/27/17 02:23> - Discharge Clinical Impression: Abscess of right buttock Condition: Stable Disposition: HOME, SELF-CARE Additional Instructions: ABSCESS: You have an abscess (boil). This a pus-forming infection, usually due to staph. Some boils may be left to drain on their own, but most require lancing. From the time the tender lump first appears, it may be three or four days before the abscess is ready to rosy. Local heat and rest help at this stage of treatment. An antibiotic may prevent spread of the infection. Once the abscess is opened, packing may be placed into it. This is done so pus is not sealed inside by premature closure of the cavity. The packing will be removed at your follow-up visit or you may be advised to remove it yourself at home. Sometimes this packing must be replaced a few times during healing. The wound will heal with surprisingly little scar. Depending on the size and location of an abscess, healing can take one to four weeks. You may shower and wash the area around the incision site two or three times a day. Antibiotics may be prescribed, but are usually not necessary after an abscess has been drained. If you develop fever, chills, worsening pain, or increasing swelling in the area, call the doctor or return immediately. POST INCISION AND DRAINAGE: You have had an incision made to allow drainage of an abscess. The incision must remain open so that pus and debris can drain from the wound. If the abscess cavity is large, packing is placed. This keeps the tissues from collapsing and trapping pus inside, while the body shrinks the cavity. The packing may need to be replaced every day or two. The physician will instruct you on the packing. Keep a bulky dressing over the area. Replace it if it becomes saturated with blood or pus. Do not disturb the packing (if present). You may shower and cleanse the area with gentle soap and warm water two or three times a day. Local warmth may be soothing, and may promote faster healing. Return if you develop high fever or chills, or if you note spreading redness, increasing swelling, or increasing tenderness. ORAL NARCOTIC MEDICATION: You have been given a Iencuentra dispense pack for pain control. This medication is a narcotic. It's best taken with food, as nausea can result if taken on an empty stomach. Don't operate machinery or drive within six hours of taking this medication. Do not combine this medicine with alcohol, or with any medication which can cause sedation (such as cold tablets or sleeping pills) unless you get permission from the physician. Narcotics tend to cause constipation. If possible, drink plenty of fluids and eat a diet high in fiber and fruits. DOXYCYCLINE: Doxycycline (Vibramycin, Doryx) is an antibiotic of the tetracycline family. This type of drug is useful for infections of the respiratory tract and genital tract, and is sometimes used for intestinal infections. Unlike most tetracyclines, doxycycline can be taken with food. It is longer acting, and (usually) less prone to side effects than regular tetracycline. Tetracycline antibiotics can stain immature teeth and SHOULD NOT BE TAKEN BY CHILDREN, NURSING MOTHERS, OR WOMEN. Tetracyclines can make you more prone to sunburn. Abdominal cramping, nausea, and diarrhea are occasional side effects. Women may experience vaginal yeast infections. Call the doctor at once if you develop hives, itching, shortness of breath , or lightheadedness. Since your abscess got worse at your last visit please return to the ED I between 2 PM and 2 AM on 12/28 so I can reassess this abscess Prescriptions: Doxycycline Hyclate 100 mg PO BID #20 tablet Forms: Smoking Cessation Education, Elevated Blood Pressure
[2017-12-26] MEDS ORDERED: MORPHINE SULFATE 10 MG/ML INJ IM ONE (21:20)
[2017-12-26] MEDS ORDERED: DOXYCYCLINE HYCLATE 100 MG TABLET PO ONE (22:17)
[2017-12-26] MEDS ORDERED: HYDROCODONE/ACETAMINOPHEN 5-325 MG (6 TAB/ER DISP) PO PRN (22:17)
[2017-12-26 23:32] VITALS: BP 126/73
== END 2017-12-26 22:50 | disposition home or self-care (01) ==
LOC: ER 18:29
DX: L02.31 Cutaneous abscess of buttock (principal); J45.909 Unspecified asthma, uncomplicated; F17.210 Nicotine dependence, cigarettes, uncomplicated; Z71.6 Tobacco abuse counseling; Z86.14 Personal history of Methicillin resistant Staphylococcus aureus infection; Z88.8 Allergy status to other drugs, medicaments and biological substances
CPT/HCPCS: 99406; 99283; 96372; 87070; 87205; 87075; 87077; 87186; 10060; A6266; J3490; J2270

== ENCOUNTER 2017-12-28 19:42 | Emergency (ER) | payer SELFPAY ==
[2017-12-28 20:03] VITALS: BP 94/75
--- NOTE | 2017-12-28 20:11 | ER Document Report ---
ED Suture/Wound Recheck - General Chief Complaint: Wound Recheck Stated Complaint: WOUND RECHECK Time Seen by Provider: 12/28/17 20:01 Notes: 37-year-old female presents to ED for recheck of abscess. She was seen 2 days ago with an I&D of the abscess. Abscess is much improved today. TRAVEL OUTSIDE OF THE [place] IN LAST 30 DAYS: No - HPI Previous ED treatment: I&D of abscess Antibiotics given previously: Prescription Quality of pain: Burning, Sharp Severity: Moderate Pain Level: 3 Symptoms since procedure: Pain Exacerbated by: Sitting, Movement, Walking Relieved by: Denies - Related Data Allergies/Adverse Reactions: promethazine HCl [From Phenergan] Allergy (Severe, Verified 12/28/17 19:43) Anaphylaxis Past Medical History - General Information source: Patient - Social History Smoking Status: Current Every Day Smoker Cigarette use (# per day): Yes Smoking Education Provided: Yes - 4 min Lives with: Spouse/Significant other Family History: Malignancy, Thyroid Disfunction. denies: Arthritis, CAD, COPD, CVA, DM, Hyperlipidemia, Hypertension Patient has suicidal ideation: No Patient has homicidal ideation: No - Past Medical History Cardiac Medical History: Reports: None Pulmonary Medical History: Reports: Hx Asthma EENT Medical History: Reports: None Neurological Medical History: Reports: Hx Migraine Endocrine Medical History: Reports: None Renal/ Medical History: Reports: None Malignancy Medical History: Reports: None GI Medical History: Reports: Hx Gastroesophageal Reflux Disease Musculoskeletal Medical History: Reports Hx Arthritis, Reports Hx Musculoskeletal Trauma Skin Medical History: Reports Hx Cellulitis, Reports Hx MRSA Psychiatric Medical History: Reports: None Traumatic Medical History: Reports: Hx Fractures - Jaw Infectious Medical History: Reports: Hx MRSA Past Surgical History: Reports: Hx Appendectomy, Hx Section - x2, Hx Nose Surgery - Sinus surgery, Hx Tubal Ligation - Immunizations Hx Diphtheria, Pertussis, Tetanus Vaccination: Yes Review of Systems - Review of Systems Constitutional: No symptoms reported EENT: No symptoms reported Cardiovascular: No symptoms reported Respiratory: No symptoms reported Gastrointestinal: No symptoms reported Genitourinary: No symptoms reported Female Genitourinary: No symptoms reported Musculoskeletal: No symptoms reported Skin: Other Hematologic/Lymphatic: No symptoms reported Neurological/Psychological: No symptoms reported Physical Exam - Vital signs Vitals: Temp Pulse Resp BP Pulse Ox 97.7 F 85 14 94/75 L 98 12/28/17 19:56 12/28/17 19:56 12/28/17 19:56 12/28/17 19:56 12/28/17 19:56 Interpretation: Normal - General General appearance: Appears well, Alert - HEENT Head: Normocephalic, Atraumatic Eyes: Normal Pupils: PERRL - Respiratory Respiratory status: No respiratory distress Chest status: Nontender Breath sounds: Normal Chest palpation: Normal - Cardiovascular Rhythm: Regular Heart sounds: Normal auscultation Murmur: No - Abdominal Inspection: Normal Distension: No distension Bowel sounds: Normal Tenderness: Nontender Organomegaly: No organomegaly - Back Back: Normal, Nontender - Extremities General upper extremity: Normal inspection, Nontender, Normal color, Normal ROM , Normal temperature General lower extremity: Normal inspection, Nontender, Normal color, Normal ROM , Normal temperature, Normal weight bearing. No: Glenys's sign - Neurological Neuro grossly intact: Yes Cognition: Normal Orientation: AAOx4 [place] Coma Scale Eye Opening: Spontaneous [place] Coma Scale Verbal: Oriented [place]rina Coma Scale Motor: Obeys Commands [place] Coma Scale Total: 15 Speech: Normal Motor strength normal: LUE, RUE, LLE, RLE Sensory: Normal - Psychological Associated symptoms: Normal affect, Normal mood - Skin Skin Temperature: Warm Skin Moisture: Dry Skin Color: Normal Skin irregularity: Abscess Location of irregularity: Other - Right buttocks Irregularity with: Swelling, Tenderness Course - Re-evaluation Re-evalutation: 12/29/17 03:03 Packing removed from right buttocks. Wound redressed and patient discharged home. Abscess is much improved from last visit. Patient instructed to continue using antibiotics as prescribed. Patient stated she could soak her abscess and some absent salt it would help relieve the pain. Patient to follow- up with primary doctor or return to ED for any increase in symptoms. - Vital Signs Vital signs: Temp Pulse Resp BP Pulse Ox 97.7 F 85 14 94/75 L 98 12/28/17 19:56 12/28/17 19:56 12/28/17 19:56 12/28/17 19:56 12/28/17 19:56 Discharge - Discharge Clinical Impression: Encounter for wound re-check Condition: Stable Disposition: HOME, SELF-CARE Instructions: Family Physicians / Practices Additional Instructions: ABSCESS: You have an abscess (boil). This a pus-forming infection, usually due to staph. Some boils may be left to drain on their own, but most require lancing. From the time the tender lump first appears, it may be three or four days before the abscess is ready to rosy. Local heat and rest help at this stage of treatment. An antibiotic may prevent spread of the infection. Once the abscess is opened, packing may be placed into it. This is done so pus is not sealed inside by premature closure of the cavity. The packing will be removed at your follow-up visit or you may be advised to remove it yourself at home. Sometimes this packing must be replaced a few times during healing. The wound will heal with surprisingly little scar. Depending on the size and location of an abscess, healing can take one to four weeks. You may shower and wash the area around the incision site two or three times a day. Antibiotics may be prescribed, but are usually not necessary after an abscess has been drained. If you develop fever, chills, worsening pain, or increasing swelling in the area, call the doctor or return immediately. Continue your medications as prescribed. Epsom Salt Soaks Soak the wound area in a container of warm epsom salt water. If you can't get the wound area into a bucket or echevraria, use a folded towel soaked in the epsom salt solution and apply to the area. Use clean hot tap water (about the temperature of a very warm bath), mixing in about one (1) teaspoon for every pint of water. Two gallon --> 16 teaspoons Epsom Salts One gallon --> 8 teaspoons Epsom Salts Two quarts --> 4 teaspoons Epsom Salts One quart --> 2 teaspoons Epsom Salts Soak the wound for about 20 minutes while gently moving it around in the water. Repeat this four (4) times a day. FOLLOW-UP CARE: Most simple abscesses will not require a follow up visit. If you had packing placed in the abscess, remove it as instructed by the physician. If you have been referred to a physician for follow-up care, call the physicians office for an appointment as you were instructed or within the next two days. If you experience worsening or a significant change in your symptoms, return to the Emergency Department at any time for re-evaluation. Forms: Smoking Cessation Education Referrals: [facility] [Provider Group] - Follow up as needed [facility] [Provider Group] - Follow up as needed
== END 2017-12-28 20:23 | disposition home or self-care (01) ==
LOC: ER 19:42
DX: L02.31 Cutaneous abscess of buttock (principal)
CPT/HCPCS: 99282

== ENCOUNTER → 2018-11-26 | Outpatient (CLI) | payer MEDICAID ==
--- NOTE | 2018-11-26 12:56 | RADIOLOGY REPORT (SQ) ---
EXAM DESCRIPTION: ANKLE RIGHT COMPLETE COMPLETED DATE/TIME: 11/26/2018 12:48 pm REASON FOR STUDY: M25.471 COMPARISON: None. NUMBER OF VIEWS: Three views. TECHNIQUE: AP, lateral, and oblique radiographic images acquired of the right ankle. LIMITATIONS: None. FINDINGS: MINERALIZATION: Normal. BONES: No acute fracture or dislocation. No worrisome bone lesions. JOINTS: No effusions. SOFT TISSUES: No soft tissue swelling. No foreign body. OTHER: No other significant finding. IMPRESSION: NEGATIVE STUDY OF THE RIGHT ANKLE. NO RADIOGRAPHIC EVIDENCE OF ACUTE INJURY. TECHNICAL DOCUMENTATION: JOB ID: [id number] [employer]- All Rights Reserved Reading location - IP/workstation name: [email or web address]
== END ==
LOC: RAD 12:27
PROVIDERS: ATTEND Nurse Practitioner Family
DX: M25.471 Effusion, right ankle (principal)

== ENCOUNTER 2019-02-06 20:24 | Emergency (ER) | payer MEDICAID ==
[2019-02-06] MEDS ORDERED: ONDANSETRON 4 MG TAB.RAPDIS PO ONE (20:45)
--- NOTE | 2019-02-06 20:45 | ER Document Report ---
ED Medical Screen (RME) - General Chief Complaint: Abdominal Pain Stated Complaint: ABDOMINAL PAIN Time Seen by Provider: 02/06/19 20:44 Primary Care Provider: ANA LUGO NP [Primary Care Provider] - Follow up as needed Mode of Arrival: Ambulatory Information source: Patient Notes: 38-year-old female presented to ED with complaint of abdominal pain from the umbilicus left and down. She states it started last night. She states she has had nausea and vomited x3. She states she did have 2 bowel movements today and earlier today she had a fever of 102. She states she does smoke a pack a day drinks weekly but does not use any kind of drugs. She is alert oriented respirations regular and unlabored speaking in full sentences walks with a even steady gait. I have greeted and performed a rapid initial assessment of this patient. A comprehensive ED assessment and evaluation of the patient, analysis of test results and completion of medical decision making process will be conducted by an additional ED providers. TRAVEL OUTSIDE OF THE [place] IN LAST 30 DAYS: No - Related Data Allergies/Adverse Reactions: promethazine HCl [From Phenergan] Allergy (Severe, Verified 12/28/17 19:43) Anaphylaxis Past Medical History Pulmonary Medical History: Reports: Hx Asthma Neurological Medical History: Reports: Hx Migraine Renal/ Medical History: Denies: Hx Peritoneal Dialysis GI Medical History: Reports: Hx Gastroesophageal Reflux Disease Musculoskeltal Medical History: Reports Hx Arthritis, Reports Hx Musculoskeletal Trauma Skin Medical History: Reports Hx Cellulitis, Reports Hx MRSA Traumatic Medical History: Reports: Hx Fractures - Jaw Infectious Medical History: Reports: Hx MRSA Past Surgical History: Reports: Hx Appendectomy, Hx Section - x2, Hx Nose Surgery - Sinus surgery, Hx Tubal Ligation - Immunizations Hx Diphtheria, Pertussis, Tetanus Vaccination: Yes Physical Exam - Vital signs Vitals: Temp Pulse Resp BP Pulse Ox 97.9 F 83 18 124/98 H 99 02/06/19 20:29 02/06/19 20:29 02/06/19 20:29 02/06/19 20:29 02/06/19 20:29 Course - Vital Signs Vital signs: Temp Pulse Resp BP Pulse Ox 97.9 F 83 18 124/98 H 99 02/06/19 20:29 02/06/19 20:29 02/06/19 20:29 02/06/19 20:29 02/06/19 20:29 Doctor's Discharge - Discharge Referrals: ANA LUGO NP [Primary Care Provider] - Follow up as needed
[2019-02-06] MEDS ORDERED: NORMAL SALINE 1000 ML 1,000 ML IV ONE (20:46)
[2019-02-06 21:15] LABS: ABSOLUTE BASOPHILS # (AUTO) 0.1 10^3/uL (0.0-0.2); ABSOLUTE EOSINOPHILS # (AUTO) 0.4 10^3/uL (0.0-0.6); ABSOLUTE LYMPHOCYTES (AUTO) 2.6 10^3/uL (0.5-4.7); ABSOLUTE MONOCYTES (AUTO) 0.9 10^3/uL (0.1-1.4); ABSOLUTE NEUT (AUTO) 9.8 10^3/uL (1.7-8.2); BASOPHILS % (AUTO) 0.5 % (0-2); EOSINOPHILS % (AUTO) 2.7 % (0-6); HEMATOCRIT 42.1 % (36.0-47.0); HEMOGLOBIN 14.4 g/dL (12.0-15.5); LYMPHOCYTES % (AUTO) 18.6 % (13-45); MEAN CORPUSCULAR HEMOGLOBIN 34.2 pg (27.0-33.4); MEAN CORPUSCULAR HGB CONC 34.2 g/dL (32.0-36.0); MEAN CORPUSCULAR VOLUME 100 fl (80-97); MONOCYTES % (AUTO) 6.5 % (3-13); RED CELL DISTRIBUTION WIDTH 13.2 % (11.5-14.0); SEGMENTED NEUTROPHILS % (AUTO) 71.7 % (42-78); TOTAL CELLS COUNTED % (AUTO) 100 %; WHITE BLOOD COUNT 13.7 10^3/uL (4.0-10.5)
[2019-02-06 21:28] LABS: ALKALINE PHOSPHATASE 97 U/L (38-126); ANION GAP 12 (5-19); ASPARTATE AMINO TRANSFERASE 29 U/L (14-36); BILIRUBIN,TOTAL 0.8 mg/dL (0.2-1.3); BLOOD UREA NITROGEN 13 mg/dL (7-20); CALCIUM 10.2 mg/dL (8.4-10.2); CARBON DIOXIDE 20 mmol/L (22-30); CHLORIDE 105 mmol/L (98-107); GLUCOSE 93 mg/dL (75-110); POTASSIUM 4.5 mmol/L (3.6-5.0); TOTAL PROTEIN 8.7 g/dL (6.3-8.2)
[2019-02-06 21:39] LABS: APPEARANCE,URINE CLEAR; BILIRUBIN,URINE NEGATIVE (NEGATIVE); COLOR,URINE AMBER; GLUCOSE, URINE NEGATIVE (NEGATIVE); KETONES,URINE NEGATIVE (NEGATIVE); LEUKOCYTE ESTERASE,URINE MODERATE (NEGATIVE); NITRITE,URINE POSITIVE (NEGATIVE); PROTEIN,URINE NEGATIVE (NEGATIVE); URINE SPECIFIC GRAVITY 1.006
[2019-02-06 21:44] LABS: PLATELET COUNT 230 10^3/uL (150-450)
[2019-02-06] MEDS ORDERED: MORPHINE SULFATE 10 MG/ML INJ IV ONE (22:11)
--- NOTE | 2019-02-06 22:16 | ER Document Report ---
ED GI/ - General Chief Complaint: Abdominal Pain Stated Complaint: ABDOMINAL PAIN Time Seen by Provider: 02/06/19 20:44 Primary Care Provider: ANA LUGO NP [NO LOCAL MD] - Follow up as needed Mode of Arrival: Ambulatory Notes: Patient is a 38-year-old female presents to the emergency department with a chief complaint of abdominal pain. Patient states that yesterday afternoon she developed umbilical abdominal pain that radiates to the left lower quadrant. Patient reports she has had a temp of 101.9 at home. Patient reports nausea without vomiting. Patient denies urinary symptoms. Patient reports her last bowel movement was today. Patient reports this was normal for her and without blood. Patient denies flank pain. TRAVEL OUTSIDE OF THE [place] IN LAST 30 DAYS: No - Related Data Allergies/Adverse Reactions: promethazine HCl [From Phenergan] Allergy (Severe, Verified 12/28/17 19:43) Anaphylaxis Past Medical History - General Information source: Patient - Social History Smoking Status: Current Every Day Smoker Lives with: Family Family History: Malignancy, Thyroid Disfunction. denies: Arthritis, CAD, COPD, CVA, DM, Hyperlipidemia, Hypertension Patient has suicidal ideation: No Patient has homicidal ideation: No - Past Medical History Cardiac Medical History: Reports: None Pulmonary Medical History: Reports: Hx Asthma EENT Medical History: Reports: None Neurological Medical History: Reports: Hx Migraine Endocrine Medical History: Reports: None Renal/ Medical History: Reports: None. Denies: Hx Peritoneal Dialysis Malignancy Medical History: Reports: None GI Medical History: Reports: Hx Gastroesophageal Reflux Disease Musculoskeletal Medical History: Reports Hx Arthritis, Reports Hx Musculoskeletal Trauma Skin Medical History: Reports Hx Cellulitis, Reports Hx MRSA Psychiatric Medical History: Reports: None Traumatic Medical History: Reports: Hx Fractures - Jaw Infectious Medical History: Reports: Hx MRSA Past Surgical History: Reports: Hx Appendectomy, Hx Section - x2, Hx Nose Surgery - Sinus surgery, Hx Tubal Ligation - Immunizations Hx Diphtheria, Pertussis, Tetanus Vaccination: Yes Review of Systems - Review of Systems Constitutional: No symptoms reported EENT: No symptoms reported Cardiovascular: No symptoms reported Respiratory: No symptoms reported Gastrointestinal: See HPI Genitourinary: No symptoms reported Female Genitourinary: No symptoms reported Musculoskeletal: No symptoms reported Skin: No symptoms reported Hematologic/Lymphatic: No symptoms reported Neurological/Psychological: No symptoms reported Physical Exam - Vital signs Vitals: Temp Pulse Resp BP Pulse Ox 97.9 F 83 18 124/98 H 99 02/06/19 20:29 02/06/19 20:29 02/06/19 20:29 02/06/19 20:29 02/06/19 20:29 Interpretation: Normal - Notes Notes: GENERAL: Well-appearing, well-nourished and in no acute distress. HEAD: Atraumatic, normocephalic. EYES: Pupils equal round and reactive to light, extraocular movements intact, sclera anicteric, conjunctiva are normal. ENT: TMs normal, nares patent, oropharynx clear without exudates. Moist mucous membranes. NECK: Normal range of motion, supple without lymphadenopathy or JVD. LUNGS: Breath sounds clear to auscultation bilaterally and equal. No wheezes rales or rhonchi. HEART: Regular rate and rhythm without murmurs, rubs or gallops. ABDOMEN: Soft, umbilical and left lower quadrant tenderness with palpation, hyperactive bowel sounds. + guarding. No masses appreciated. BACK: No cervical, thoracic, lumbar midline tenderness. No saddle anesthesia, normal distal neurovascular exam. NO CVA tenderness. GENITOURINARY: Deferred. EXTREMITIES: Normal range of motion, no pitting or edema. No clubbing or cyanosis. NEUROLOGICAL: Cranial nerves II through XII grossly intact. Normal speech, normal gait. PSYCH: Normal mood, normal affect. SKIN: Warm, Dry, normal turgor, no rashes or lesions noted. Course - Re-evaluation Re-evalutation: 02/06/19 22:15 Patient does have a urinary tract infection. Patient does have a slight leukocytosis. Patient is obviously on comfortable and unable to sit still on the stretcher she is complaining of severe abdominal pain. Will obtain a CT of the abdomen with IV contrast. Patient aware and agrees with this plan. We will give IV pain medication. 02/07/19 00:49 I did attempt to call [facility] to speak with urology. They report that they are on diversion and not accepting patients at this time. I did speak with Marimar Washburn to consult with urology. They do plan to call me back. I did discuss the results of the blood and CT scan with the patient. Patient was having dry heaving. Patient was given 1 g of Rocephin, IV fluids and an additional pain and nausea medication. Patient is not febrile, tachycardic. Patient's blood pressure systolic in the 90s. Patient reports at times her blood pressure is on the lower side. 02/07/19 01:13 I did speak with Arnav Sheldon MD at [facility] in regards to the patient's case to include the 6.6 mm distal ureter stone, slight leukocytosis of 13.9, vital signs, urinary tract infection, and patient's overall presentation. He does believe that at this time the patient can be managed outpatient. He does want the patient to follow-up in the office tomorrow. He does recommend p rescribing an antibiotic, Flomax and Toradol. Patient will be placed on strict return precautions. 02/07/19 01:19 I did make patient aware of the plan. She is alert and oriented x3. Denies nausea. Will do a p.o. challenge. 02/07/19 01:40 Patient has been tolerating liquids without nausea or vomiting. Patient did complain of acid reflux in which I did give IV Pepcid. Patient and significant other are in agreement with discharge plan and are aware of strict return precautions that have been discussed thoroughly. They state they will call the multiple urologist in the morning to make a follow-up appointment. 02/07/19 01:43 At time of discharge patient is urinating without difficulty. Patient is not tachycardic, hypotensive, febrile. - Vital Signs Vital signs: Temp Pulse Resp BP Pulse Ox 98.2 F 74 16 94/60 L 97 02/07/19 00:32 02/07/19 00:32 02/07/19 00:32 02/07/19 00:32 02/07/19 00:32 - Laboratory Result Diagrams: 02/06/19 21:00 02/06/19 21:00 Laboratory results interpreted by me: 02/06/19 02/06/19 02/06/19 21:00 21:00 21:11 WBC 13.7 H MCV 100 H MCH 34.2 H Absolute Neuts (auto) 9.8 H Carbon Dioxide 20 L Total Protein 8.7 H Urine Blood SMALL H Urine Nitrite POSITIVE H Urine Urobilinogen 4.0 H Ur Leukocyte Esterase MODERATE H 02/07/19 01:43 Laboratory 02/06/19 02/06/19 02/06/19 21:00 21:00 21:00 WBC 13.7 H RBC 4.20 Hgb 14.4 Hct 42.1 MCV 100 H MCH 34.2 H MCHC 34.2 RDW 13.2 Plt Count 230 Lymph % (Auto) 18.6 [place] % (Auto) 6.5 Eos % (Auto) 2.7 Baso % (Auto) 0.5 Absolute Neuts (auto) 9.8 H Absolute Lymphs (auto) 2.6 Absolute Monos (auto) 0.9 Absolute Eos (auto) 0.4 Absolute Basos (auto) 0.1 Seg Neutrophils % 71.7 Sodium 137.0 Potassium 4.5 Chloride 105 Carbon Dioxide 20 L Anion Gap 12 BUN 13 Creatinine 0.93 Est GFR ( Amer) > 60 Est GFR (MDRD) Non-Af > 60 Glucose 93 Calcium 10.2 Total Bilirubin 0.8 Direct Bilirubin 0.0 Neonat Total Bilirubin Not Reportable Neonat Direct Bilirubin Not Reportable Neonat Indirect Bili Not Reportable AST 29 ALT 14 Alkaline Phosphatase 97 Total Protein 8.7 H Albumin 5.0 Serum HCG, Qual NEGATIVE Urine Color Urine Appearance Urine pH Ur Specific [place] Urine Protein Urine Glucose (UA) Urine Ketones Urine Blood Urine Nitrite Urine Bilirubin Urine Urobilinogen Ur Leukocyte Esterase Urine WBC (Auto) Urine RBC (Auto) Urine Bacteria (Auto) Squamous Epi Cells Auto Urine Mucus (Auto) Urine Ascorbic Acid 02/06/19 21:11 WBC RBC Hgb Hct MCV MCH MCHC RDW Plt Count Lymph % (Auto) [place] % (Auto) Eos % (Auto) Baso % (Auto) Absolute Neuts (auto) Absolute Lymphs (auto) Absolute Monos (auto) Absolute Eos (auto) Absolute Basos (auto) Seg Neutrophils % Sodium Potassium Chloride Carbon Dioxide Anion Gap BUN Creatinine Est GFR ( Amer) Est GFR (MDRD) Non-Af Glucose Calcium Total Bilirubin Direct Bilirubin Neonat Total Bilirubin Neonat Direct Bilirubin Neonat Indirect Bili AST ALT Alkaline Phosphatase Total Protein Albumin Serum HCG, Qual Urine Color [place] Urine Appearance CLEAR Urine pH 6.0 Ur Specific [place] 1.006 Urine Protein NEGATIVE Urine Glucose (UA) NEGATIVE Urine Ketones NEGATIVE Urine Blood SMALL H Urine Nitrite POSITIVE H Urine Bilirubin NEGATIVE Urine Urobilinogen 4.0 H Ur Leukocyte Esterase MODERATE H Urine WBC (Auto) 55 Urine RBC (Auto) 1 Urine Bacteria (Auto) TRACE Squamous Epi Cells Auto 5 Urine Mucus (Auto) RARE Urine Ascorbic Acid NEGATIVE Patient has a slight leukocytosis of 13.7. Patient does have positive nitrites and a moderate amount of leukocytes in the urine. Patient does have 55 white blood cells and trace bacteria. - Diagnostic Test Radiology reviewed: Reports reviewed Radiology results interpreted by me: 02/07/19 00:49 Abdomen/Pelvis CT 02/06/19 22:12 IMPRESSION: Mild left hydroureteronephrosis with surrounding inflammation secondary to a 6.6 mm left UVJ calculus TECHNICAL DOCUMENTATION: Quality ID # 436: Final reports with documentation of one or more dose reduction techniques (e.g., Automated exposure control, adjustment of the mA and/or kV according to patient size, use of iterative reconstruction technique) copyright 2011 [employer]- All Rights Reserved Discharge - Discharge Clinical Impression: Urethral stone, Chills Urinary tract infection Qualifiers: Urinary tract infection type: site unspecified Hematuria presence: with hematuria Qualified Code(s): N39.0 - Urinary tract infection, site not specified; R31.9 - Hematuria, unspecified Vomiting Qualifiers: Vomiting type: unspecified Vomiting Intractability: non-intractable Nausea presence: with nausea Qualified Code(s): R11.2 - Nausea with vomiting, unspecified Condition: Stable Disposition: HOME, SELF-CARE Additional Instructions: Today you are seen in the emergency department for abdominal pain. It was noted on your CAT scan at that you have a ureteral stone measuring 6.6 mm. This stone is in the distal ureter which means it on the verge of passing. He will also do have a urinary tract infection. You have been given IV fluids and IV antibiotics prior to discharge. You will be prescribed Toradol which is an anti-inflammatory and is a pain medication. Please take this as prescribed. Do not take any other anti- inflammatory such as ibuprofen or Motrin when taking this medication. You are also being prescribed an antibiotic. It is imperative that you start your antibiotic in the morning. This will treat the infection and prevent worsening of infection. Also being prescribed Flomax. Flomax will help dilate the ureter so you are able to pass the stone easily. You are also being given 6 [place] tablets. [place] is a narcotic and contains hydrocodone. Do not drive or operate heavy machinery while on this medication. I did speak with Dr. Arnav Sheldon who is a urologist at [facility] in [place]. He does want you to follow-up with a urologist. Call them tomorrow for an appointment. I will provide you with the information to the office. I will also give you other referrals to urologist in the area. It is imperative you follow-up as you do have a kidney stone with an infection. I will give you information to our employment evaluator/case manager who may be able to assist you in following up as you do have Medicaid. Dr. Arnav Sheldon [facility] [address] [id number] [phone] Ajith Dumont [address] [id number] [facility] [id number] Xiao Jung [facility] [address] [id number] Please return to emergency department immediately if you develop fever, abdominal pain that is severe, dizziness, lightheadedness, uncontrollable vomiting or any worsening signs or symptoms. You are at increased risk for worsening symptoms as you do have a urinary tract infection and a ureteral stone. Prescriptions: Ketorolac Tromethamine [Toradol 10 mg Tablet] 10 mg PO Q8HP PRN #21 tablet PRN Reason: Tamsulosin HCl [Flomax] 0.4 mg PO DAILY #7 cap.er.24h Cephalexin Monohydrate [Keflex 500 mg Capsule] 500 mg PO BID 10 Days #20 capsule Referrals: ANA LUGO NP [NO LOCAL MD] - Follow up as needed
--- NOTE | 2019-02-06 23:29 | RADIOLOGY REPORT (SQ) ---
EXAM DESCRIPTION: CT ABDOMEN PELVIS WITH IV CONTRAST COMPLETED DATE/TME: 02/06/2019 22:12 CLINICAL HISTORY: 38 years, Female, umbilical/llq pain COMPARISON: None. TECHNIQUE: 399 Images stored on PACS. All CT scanners at this facility use dose modulation, iterative reconstruction, and/or weight based dosing when appropriate to reduce radiation dose to as low as reasonably achievable (ALARA). [facility]: Dose Right [facility]: CareDose [facility]: Dose Right [facility]: Teradose 4D [facility]: [employer] LIMITATIONS: None. FINDINGS: Limited evaluation of the lung bases is unremarkable. Osseous structures are grossly intact. Fatty infiltrative change to the liver. The spleen, adrenal glands, pancreas, and right kidney are unremarkable. Mild left hydroureteronephrosis, secondary to an approximately 6.6 mm distal left ureteral/left UVJ calculus. Minor associated perinephric and periureteral inflammation. No gross evidence for bowel obstruction. No free air or free fluid. Appendix not well seen. No pericecal inflammation. IMPRESSION: Mild left hydroureteronephrosis with surrounding inflammation secondary to a 6.6 mm left UVJ calculus TECHNICAL DOCUMENTATION: Quality ID # 436: Final reports with documentation of one or more dose reduction techniques (e.g., Automated exposure control, adjustment of the mA and/or kV according to patient size, use of iterative reconstruction technique) copyright 2011 [employer]- All Rights Reserved
[2019-02-06] MEDS ORDERED: KETOROLAC TROMETHAMINE INJ/PF 30 MG/1 ML SDV IV ONE (23:31)
[2019-02-06] MEDS ORDERED: CEFTRIAXONE 1 GM/D5W RTU 1 GM/50 ML RTUPB IV ONE (23:31)
[2019-02-06] MEDS ORDERED: METOCLOPRAMIDE HCL INJ/PF 10 MG/2 ML SDV IV ONE (23:37)
[2019-02-07] MEDS ORDERED: FAMOTIDINE INJ/PF 20 MG/2 ML SDV IV ONE (01:20)
[2019-02-07] MEDS ORDERED: TAMSULOSIN HCL 0.4 MG CAP.SR.24H PO ONE (01:20)
[2019-02-07] MEDS ORDERED: HYDROCODONE/ACETAMINOPHEN 5-325 MG (6 TAB/ER DISP) PO PRN (01:21)
[2019-02-07 01:47] VITALS: BP 120/63
== END 2019-02-07 01:45 | disposition home or self-care (01) ==
LOC: ER 20:24
DX: N13.2 Hydronephrosis with renal and ureteral calculous obstruction (principal); N39.0 Urinary tract infection, site not specified; R31.9 Hematuria, unspecified; K21.9 Gastro-esophageal reflux disease without esophagitis; R10.33 Periumbilical pain; R10.814 Left lower quadrant abdominal tenderness; R10.815 Periumbilic abdominal tenderness; D72.829 Elevated white blood cell count, unspecified; R11.2 Nausea with vomiting, unspecified; R68.83 Chills (without fever); F17.200 Nicotine dependence, unspecified, uncomplicated; J45.909 Unspecified asthma, uncomplicated; Z88.8 Allergy status to other drugs, medicaments and biological substances; Z90.49 Acquired absence of other specified parts of digestive tract; Z98.51 Tubal ligation status
CPT/HCPCS: 36415; 87086; 84703; 85025; 87088; 80053; 81001; 74177; S0119; J1885; J2765; J2270; J3490; J7030; S0028; J0696; 87186

== ENCOUNTER → 2019-03-05 | Outpatient (CLI) | payer MEDICAID ==
--- NOTE | 2019-03-05 19:35 | RADIOLOGY REPORT (SQ) ---
EXAM DESCRIPTION: FOOT RIGHT COMPLETE COMPLETED DATE/TIME: 03/05/2019 7:21 pm REASON FOR STUDY: M79.671 PAIN IN RIGHT FOOT M79.671 PAIN IN RIGHT FOOT COMPARISON: None. EXAM PARAMETERS: NUMBER OF VIEWS: Three views. TECHNIQUE: AP, lateral and oblique radiographic images acquired of the right foot. LIMITATIONS: None. FINDINGS: MINERALIZATION: Normal. BONES: Nondisplaced diaphyseal fracture in the proximal phalanx right 5th digit. No other fracture i dentified. No dislocation. JOINTS: No effusion. SOFT TISSUES: Mild soft tissue swelling. No radiopaque foreign body. OTHER: No other significant finding. IMPRESSION: Nondisplaced diaphyseal fracture in the proximal phalanx right 5th digit. No other frac ture identified. TECHNICAL DOCUMENTATION: JOB ID: [id number] [place]-72 2010 [employer]- All Rights Reserved Reading location - IP/workstation name: [email or web address]
== END ==
LOC: RAD 19:02
PROVIDERS: ATTEND Nurse Practitioner Acute Care
DX: M79.671 Pain in right foot (principal)

== ENCOUNTER 2019-04-15 21:47 | Emergency (ER) | payer SELFPAY ==
--- NOTE | 2019-04-15 22:04 | ER Document Report ---
ED Medical Screen (RME) - General Chief Complaint: Arm Pain Stated Complaint: LEFT ARM PAIN,BLURRY VISION Time Seen by Provider: 04/15/19 21:58 Primary Care Provider: LANCE FISHER MD [Primary Care Provider] - Follow up as needed Mode of Arrival: Ambulatory Information source: Patient, Relative Notes: 38-year-old female presented to ED for change in her speech in the last 20 minutes. She states she had a headache earlier but no longer has a headache. She states she does have blurry vision. She states she does have pain in her left arm for the last 3 days and her right leg but that is not new. She states the only changes are the change in her speech and blurry vision. He has a history of high blood pressure kidney stones MRSA asthma and history of ga llstones. states he is been trying to get her to come all day due to the pain down her left arm and she has refused but then in the last hour she has had blurry vision and change in her speech and he was able to convince her to come to the emergency room. At some points her speech is very plain and at other times it is a little garbled. states she did just get dentures. I have greeted and performed a rapid initial assessment of this patient. A comprehensive ED assessment and evaluation of the patient, analysis of test results and completion of medical decision making process will be conducted by an additional ED providers. TRAVEL OUTSIDE OF THE [place] IN LAST 30 DAYS: No - Related Data Allergies/Adverse Reactions: promethazine HCl [From Phenergan] Allergy (Severe, Verified 12/28/17 19:43) Anaphylaxis Past Medical History Pulmonary Medical History: Reports: Hx Asthma Neurological Medical History: Reports: Hx Migraine Renal/ Medical History: Denies: Hx Peritoneal Dialysis GI Medical History: Reports: Hx Gastroesophageal Reflux Disease Musculoskeltal Medical History: Reports Hx Arthritis, Reports Hx Musculoskeletal Trauma Skin Medical History: Reports Hx Cellulitis, Reports Hx MRSA Traumatic Medical History: Reports: Hx Fractures - Jaw Infectious Medical History: Reports: Hx MRSA Past Surgical History: Reports: Hx Appendectomy, Hx Section - x2, Hx Nose Surgery - Sinus surgery, Hx Tubal Ligation - Immunizations Hx Diphtheria, Pertussis, Tetanus Vaccination: Yes Physical Exam - Vital signs Vitals: Temp Pulse Resp BP Pulse Ox 97.9 F 70 16 129/90 H 97 04/15/19 21:56 04/15/19 21:56 04/15/19 21:56 04/15/19 21:56 04/15/19 21:56 Course - Vital Signs Vital signs: Temp Pulse Resp BP Pulse Ox 97.9 F 70 16 129/90 H 97 04/15/19 21:56 04/15/19 21:56 04/15/19 21:56 04/15/19 21:56 04/15/19 21:56 Doctor's Discharge - Discharge Referrals: LANCE FISHER MD [Primary Care Provider] - Follow up as needed
--- NOTE | 2019-04-15 22:29 | ER Document Report ---
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 She states she sat down, recovered, and the symptoms resolved. She states she had a slight headache at the time but does not have a headache now. She denies focal numbness or weakness, all symptoms have resolved except for vague lightheadedness. Patient also states that for the past 3 days she has had pain in the left arm near the left shoulder area, this is worse with movement. She denies injury to the area. She denies shortness of breath, fever/chills, chest pain, nausea/vomiting. Past medical history of asthma, migraines, tubal ligation, kidney stones, appendectomy. TRAVEL OUTSIDE OF THE [place] IN LAST 30 DAYS: No - Related Data Allergies/Adverse Reactions: promethazine HCl [From Phenergan] Allergy (Severe, Verified 12/28/17 19:43) Anaphylaxis Past Medical History - General Information source: Patient, Relative - Social History Smoking Status: Current Every Day Smoker Frequency of alcohol use: Occasional Lives with: Family Family History: Malignancy, Thyroid Disfunction. denies: Arthritis, CAD, COPD, CVA, DM, Hyperlipidemia, Hypertension Patient has suicidal ideation: No Patient has homicidal ideation: No Pulmonary Medical History: Reports: Hx Asthma Neurological Medical History: Reports: Hx Migraine Renal/ Medical History: Denies: Hx Peritoneal Dialysis GI Medical History: Reports: Hx Gastroesophageal Reflux Disease Musculoskeletal Medical History: Reports Hx Arthritis, Reports Hx Musculoskeletal Trauma Skin Medical History: Reports Hx Cellulitis, Reports Hx MRSA Traumatic Medical History: Reports: Hx Fractures - Jaw Infectious Medical History: Reports: Hx MRSA Past Surgical History: Reports: Hx Appendectomy, Hx Section - x2, Hx No se Surgery - Sinus surgery, Hx Tubal Ligation - Immunizations Hx Diphtheria, Pertussis, Tetanus Vaccination: Yes Review of Systems - Review of Systems Constitutional: See HPI EENT: No symptoms reported Cardiovascular: See HPI Respiratory: No symptoms reported Gastrointestinal: No symptoms reported Genitourinary: No symptoms reported Female Genitourinary: No symptoms reported Musculoskeletal: See HPI Skin: No symptoms reported Hematologic/Lymphatic: No symptoms reported Neurological/Psychological: No symptoms reported Physical Exam - Vital signs Vitals: Temp Pulse Resp BP Pulse Ox 97.9 F 70 16 129/90 H 97 04/15/19 21:48 04/15/19 21:48 04/15/19 21:48 04/15/19 21:48 04/15/19 21:48 - Notes Notes: GENERAL: Alert, interacts well. No acute distress. HEAD: Normocephalic, atraumatic. EYES: Pupils equal, round, and reactive to light. Extraocular movements intact. ENT: Oral mucosa moist, tongue midline. Oropharynx unremarkable. NECK: Full range of motion. Supple. Trachea midline. LUNGS: Clear to auscultation bilaterally, no wheezes, rales, or rhonchi. No respiratory distress. HEART: Regular rate and rhythm. No murmur ABDOMEN: Soft, non-tender. Non-distended. EXTREMITIES: There is tenderness over the left AC joint and over the insertion of the left bicep tendon, positive speeds test, range of motion of the shoulder intact but slightly painful. Normal transportation engineer, normal distal neurovascular exam, normal extremities otherwise. BACK: no cervical, thoracic, lumbar midline tenderness. No saddle anesthesia, normal distal neurovascular exam. Moves all extremities in full range of motion. NEUROLOGICAL: Alert and oriented x3. Normal speech. Cranial nerves II through XII grossly intact. PSYCH: Normal affect, normal mood. SKIN: Warm, dry, normal turgor. No rashes or lesions noted. Course - Re-evaluation Re-evalutation: I reevaluated patient after IV fluids. Symptoms have completely resolved, she denies any lightheadedness or any symptoms except pain with movement of the left arm. She has a positive speeds test and her exam is consistent with bicep tendinitis. X-ray of the area is negative. Chest x-ray unremarkable. EKG, CBC, chemistry unremarkable. Troponin negative. Urinalysis shows mildly elevated specific gravity but is otherwise unremarkable. I discussed with patient. Symptoms happened after she had been standing for an extended period of time, she states she had been drinking sodas all day and not hydrating. I suspect this was the cause of her near syncope. I discussed her work-up, recommendations, follow-up, and return precautions at length. Patient states understanding and agreement. Stable at time of discharge. - Vital Signs Vital signs: Temp Pulse Resp BP Pulse Ox 98.4 F 71 16 115/82 98 04/16/19 00:26 04/16/19 00:26 04/16/19 00:26 04/16/19 00:26 04/16/19 00:26 - Laboratory Result Diagrams: 04/15/19 22:45 04/15/19 22:45 Laboratory results interpreted by me: 04/15/19 04/15/19 22:45 22:45 MCV 100 H MCH 34.2 H Est GFR (MDRD) Non-Af 52 L - EKG Interpretation by Me Additional EKG results interpreted by me: EKG shows sinus rhythm at a rate of 66, QTC of 441, NE interval 128. Normal axis. No T wave inversions or ST segment changes in consecutive leads. Discharge - Discharge Clinical Impression: Near syncope Left shoulder pain Qualifiers: Chronicity: acute Qualified Code(s): M25.512 - Pain in left shoulder Disposition: HOME, SELF-CARE Additional Instructions: Your laboratory work-up showed some dehydration but is otherwise unremarkable. Your symptoms are consistent with near syncope (almost passing out). See instructions on this below. Your x-ray does not show any concerning findings either, your exam is most consistent with bicep tendinitis. For this I recommend that you ice the area of pain 3-4 times a day for 10 to 15 minutes, take the anti-inflammatory as prescribed, symptoms should resolve with time. Follow-up with primary care for additional management. Return if you worsen including passing out, vomiting, chest pain, severe headache, difficulty breathing, or any other concerning symptoms. Near Syncopal Episode Syncope or near syncope (fainting or near-fainting) can occur from many different health problems. Or it can be a simple fainting spell requiring no treatment. It is safe for you to go home, but further evaluation will likely be necessary. Your work-up may include tests for internal bleeding, heart disease, medica tion problems, or near-strokes. Tests are not always required, however, depending on the nature of your problem. The warning signs of an impending faint include: dizziness, lightheadedness, nausea, hot flashes, tingling, and weakness. If this happens, lay down and put your feet up, then wait until all of these symptoms have passed before standing up again. If these episodes become recurrent, or if you develop chest pain, heart palpitations, mental confusion, blurred vision, or headache, then you should call the physician, or go to the emergency room. Prescriptions: Naproxen 500 mg PO BID PRN #20 tablet PRN Reason: Referrals: [facility] [Provider Group] - Follow up in 1 week
[2019-04-15] MEDS ORDERED: NORMAL SALINE 1000 ML 1,000 ML IV ONE (22:42)
--- NOTE | 2019-04-15 22:48 | RADIOLOGY REPORT (SQ) ---
EXAM DESCRIPTION: XR CHEST 2 VIEWS COMPLETED DATE/TME: 04/15/2019 22:04 CLINICAL HISTORY: 38 years, Female, left arm pain COMPARISON: None. NUMBER OF VIEWS: Two TECHNIQUE: Frontal and lateral radiograph the chest were obtained LIMITATIONS: None. FINDINGS: Cardiac and mediastinal contours are normal in appearance. Lungs are clear. No pleural effusion or pneumothorax. Mild rightward curvature of the thoracic spine. IMPRESSION: No acute disease. copyright 2010 [employer]- All Rights Reserved
[2019-04-15 23:32] LABS: APPEARANCE,URINE SLIGHTLY-CLOUDY; BILIRUBIN,URINE NEGATIVE (NEGATIVE); COLOR,URINE YELLOW; GLUCOSE, URINE NEGATIVE (NEGATIVE); KETONES,URINE NEGATIVE (NEGATIVE); PROTEIN,URINE NEGATIVE (NEGATIVE); URINE SPECIFIC GRAVITY 1.024; UROBILINOGEN,URINE NEGATIVE mg/dL (<2.0)
--- NOTE | 2019-04-15 23:43 | EKG REPORT ---
SEVERITY:- NORMAL ECG - SINUS RHYTHM : Confirmed by: Nunu Goel MD 15-Apr-2019 23:42:14
[2019-04-15 23:46] LABS: ALBUMIN 4.5 g/dL (3.5-5.0); ALKALINE PHOSPHATASE 83 U/L (38-126); ANION GAP 11 (5-19); ASPARTATE AMINO TRANSFERASE 22 U/L (14-36); BILIRUBIN,DIRECT 0.2 mg/dL (0.0-0.4); BILIRUBIN,TOTAL 0.4 mg/dL (0.2-1.3); BLOOD UREA NITROGEN 18 mg/dL (7-20); CALCIUM 9.9 mg/dL (8.4-10.2); CARBON DIOXIDE 26 mmol/L (22-30); CHLORIDE 104 mmol/L (98-107); GLUCOSE 95 mg/dL (75-110); POTASSIUM 3.9 mmol/L (3.6-5.0); TOTAL PROTEIN 7.5 g/dL (6.3-8.2)
[2019-04-15 23:53] LABS: ABSOLUTE EOSINOPHILS # (AUTO) 0.3 10^3/uL (0.0-0.6); ABSOLUTE LYMPHOCYTES (AUTO) 3.4 10^3/uL (0.5-4.7); ABSOLUTE MONOCYTES (AUTO) 0.7 10^3/uL (0.1-1.4); ABSOLUTE NEUT (AUTO) 4.5 10^3/uL (1.7-8.2); BASOPHILS % (AUTO) 0.5 % (0-2); EOSINOPHILS % (AUTO) 3.1 % (0-6); HEMATOCRIT 39.7 % (36.0-47.0); HEMOGLOBIN 13.6 g/dL (12.0-15.5); LYMPHOCYTES % (AUTO) 38.6 % (13-45); MEAN CORPUSCULAR HEMOGLOBIN 34.2 pg (27.0-33.4); MEAN CORPUSCULAR HGB CONC 34.3 g/dL (32.0-36.0); MEAN CORPUSCULAR VOLUME 100 fl (80-97); MONOCYTES % (AUTO) 7.7 % (3-13); PLATELET COUNT 252 10^3/uL (150-450); RED BLOOD COUNT 3.99 10^6/uL (3.72-5.28); SEGMENTED NEUTROPHILS % (AUTO) 50.1 % (42-78); TOTAL CELLS COUNTED % (AUTO) 100 %; WHITE BLOOD COUNT 8.9 10^3/uL (4.0-10.5)
[2019-04-16] MEDS ORDERED: KETOROLAC TROMETHAMINE INJ/PF 30 MG/1 ML SDV IV ONE (00:05)
[2019-04-16 00:28] VITALS: BP 115/82
== END 2019-04-16 00:26 | disposition home or self-care (01) ==
LOC: ER 21:47
DX: R55 Syncope and collapse (principal); M25.512 Pain in left shoulder; M79.602 Pain in left arm; H53.8 Other visual disturbances; F17.200 Nicotine dependence, unspecified, uncomplicated; Z86.14 Personal history of Methicillin resistant Staphylococcus aureus infection; Z98.51 Tubal ligation status
CPT/HCPCS: 93005; 99284; 96361; 96374; 36415; 82962; 84703; 85025; 80053; 81001; 84484; 71046; 93010; J1885; J7030

== ENCOUNTER 2019-07-29 12:40 | Emergency (ER) | payer SELFPAY ==
[2019-07-29] MEDS ORDERED: KETOROLAC TROMETHAMINE 60 MG/2 ML SDV IM ONE (12:45)
[2019-07-29] MEDS ORDERED: NORMAL SALINE 1000 ML 1,000 ML IV PRN (12:45)
[2019-07-29] MEDS ORDERED: KETOROLAC TROMETHAMINE INJ/PF 30 MG/1 ML SDV IV ONE (13:13)
--- NOTE | 2019-07-29 13:15 | ER Document Report ---
ED GI/ - General Chief Complaint: Flank Pain Stated Complaint: FLANK PAIN Time Seen by Provider: 07/29/19 12:44 Primary Care Provider: LANCE FISHER MD [ACTIVE STAFF] - Follow up as needed Notes: CHIEF COMPLAINT: Right upper quadrant pain for 2 days HPI: 38-year-old female with history of kidney stones history of gallstones presenting to the emergency department complaining of right upper quadrant right flank pain with nausea without fever for the last 2 days. Reports some dysuria as well, is concerned she might have a kidney stone or UTI. ROS: See HPI - all other systems were reviewed and are otherwise negative Constitutional: no fever Eyes: no drainage, no blurred vision ENT: no runny nose, no sore throat Cardiovascular: no chest pain Resp: no SOB, no cough GI: no vomiting, no diarrhea, positive abdominal pain, positive nausea : no dysuria Integumentary: no rash Allergy: no hives Musculoskeletal: no extremity pain or swelling Neurological: no numbness/tingling, no weakness MEDICATIONS: I agree with the patient medications as charted by the RN. ALLERGIES: I agree with the allergies as charted by the RN. PAST MEDICAL HISTORY/PAST SURGICAL HISTORY: Reviewed and agree as charted by RN. SOCIAL HISTORY: Reviewed and agree as charted by RN. FAMILY HISTORY: No significant familial comorbid conditions directly related to patient complaint EXAM: Reviewed vital signs as charted by RN. CONSTITUTIONAL: Alert and oriented and responds appropriately to questions. Well-appearing; well-nourished, mild distress secondary to pain HEAD: Normocephalic; atraumatic EYES: PERRL; Conjunctivae clear, sclerae non-icteric ENT: normal nose; no rhinorrhea; moist mucous membranes; pharynx without lesions noted, no uvula edema or deviation, no tonsillar hypertrophy, phonation normal NECK: Supple without meningismus; non-tender; no cervical lymphadenopathy, no masses CARD: RRR; no murmurs, no clicks, no rubs, no gallops; symmetric distal pulses RESP: Normal chest excursion without splinting or tachypnea; breath sounds clear and equal bilaterally; no wheezes, no rhonchi, no rales, pulse oximetry 98% on room air not hypoxic ABD/GI: Obese, normal bowel sounds; non-distended; soft, mild tenderness to the right upper quadrant on palpation, no rebound, no guarding; no palpable organomegaly or masses. BACK: The back appears normal and is non-tender to palpation, there is no CVA tenderness EXT: Normal ROM in all joints; non-tender to palpation; no cyanosis, no effusions, no edema SKIN: Normal color for age and race; warm; dry; good turgor; no acute lesions noted NEURO: Moves all extremities equally; Motor and sensory function intact PSYCH: The patient's mood and manner are appropriate. Grooming and personal hygiene are appropriate. MDM: 38-year-old female presenting for right upper quadrant right flank pain for 2 days fairly constant. Initial screening lab work and imaging through triage process. Differential would include cholecystitis cholelithiasis, renal colic, UTI, pyelonephritis TRAVEL OUTSIDE OF THE [place] IN LAST 30 DAYS: No - Related Data Allergies/Adverse Reactions: promethazine HCl [From Phenergan] Allergy (Severe, Verified 12/28/17 19:43) Anaphylaxis Past Medical History - Social History Smoking Status: Current Every Day Smoker Chew tobacco use (# tins/day): No Frequency of alcohol use: None Drug Abuse: None Family History: Malignancy, Thyroid Disfunction. denies: Arthritis, CAD, COPD, CVA, DM, Hyperlipidemia, Hypertension Patient has suicidal ideation: No Patient has homicidal ideation: No Pulmonary Medical History: Reports: Hx Asthma Neurological Medical History: Reports: Hx Migraine Renal/ Medical History: Denies: Hx Peritoneal Dialysis GI Medical History: Reports: Hx Gastroesophageal Reflux Disease Musculoskeletal Medical History: Reports Hx Arthritis, Reports Hx Musculoskeletal Trauma Skin Medical History: Reports Hx Cellulitis, Reports Hx MRSA Traumatic Medical History: Reports: Hx Fractures - Jaw Infectious Medical History: Reports: Hx MRSA Past Surgical History: Reports: Hx Appendectomy, Hx Section - x2, Hx N ose Surgery - Sinus surgery, Hx Tubal Ligation - Immunizations Hx Diphtheria, Pertussis, Tetanus Vaccination: Yes Physical Exam - Vital signs Vitals: Temp Pulse Resp BP Pulse Ox 98.8 F 80 20 107/80 97 07/29/19 12:46 07/29/19 12:46 07/29/19 12:46 07/29/19 12:46 07/29/19 12:46 Course - Re-evaluation Re-evalutation: 07/29/19 15:03 CT imaging suggests early pyelonephritis, awaiting lab work, if chemistry normal and kidney function normal anticipate discharge with pain medication antibiotics, will add urine culture. Discussed at length with the patient who is in agreement with this plan - Vital Signs Vital signs: Temp Pulse Resp BP Pulse Ox 98.8 F 80 20 107/80 97 07/29/19 12:46 07/29/19 12:46 07/29/19 12:46 07/29/19 12:46 07/29/19 12:46 - Laboratory Result Diagrams: 07/29/19 14:05 07/29/19 14:05 Laboratory results interpreted by me: 07/29/19 07/29/19 07/29/19 12:55 14:05 14:05 WBC 16.0 H MCV 100 H MCH 35.4 H Seg Neuts % (Manual) 89 H Lymphocytes % (Manual) 5 L Abs Neuts (Manual) 14.2 H Sodium Lipase 17.1 L Urine Protein 100 H Urine Blood LARGE H Urine Nitrite POSITIVE H Urine Urobilinogen 4.0 H Ur Leukocyte Esterase SMALL H 07/29/19 14:05 WBC MCV MCH Seg Neuts % (Manual) Lymphocytes % (Manual) Abs Neuts (Manual) Sodium 134.2 L Lipase Urine Protein Urine Blood Urine Nitrite Urine Urobilinogen Ur Leukocyte Esterase Discharge - Discharge Clinical Impression: Pyelonephritis of right kidney Condition: Stable Disposition: HOME, SELF-CARE Additional Instructions: Take the antibiotics as prescribed. Pain medications as prescribed do not drive if taking narcotics for pain. Follow-up closely with your primary care provider in the next 24 to 48 hours for recheck and reevaluation if you develop fever greater than 101 or have worsening or uncontrolled flank pain despite antibi otics and pain medication return for reevaluation Prescriptions: Levofloxacin [Levaquin 750 mg Tablet] 750 mg PO DAILY #10 tablet Hydrocodone/Acetaminophen [[place] 5-325 mg Tablet] 1 tab PO Q4 PRN #15 tablet PRN Reason: Referrals: LANCE FISHER MD [ACTIVE STAFF] - Follow up as needed
--- NOTE | 2019-07-29 13:25 | RADIOLOGY REPORT (SQ) ---
EXAM DESCRIPTION: CT ABD/PELVIS NO ORAL OR IV COMPLETED DATE/TIME: 07/29/2019 1:06 pm REASON FOR STUDY: pain COMPARISON: 02/06/2019 TECHNIQUE: CT scan of the abdomen and pelvis performed without intravenous or oral contrast. Images reviewed with lung, soft tissue, and bone windows. Reconstructed coronal and sagittal MPR images revi ewed. All images stored on PACS. All CT scanners at this facility use dose modulation, iterative reconstruction, and/or weight based d osing when appropriate to reduce radiation dose to as low as reasonably achievable (ALARA). [facility]: Dose Right [facility]: CareDose [facility]: Dose Right [facility]: Teradose 4D [facility]: Smart xkoto RADIATION DOSE: CT Rad equipment meets quality standard of care and radiation dose reduction techniq ues were employed. CTDIvol: 7.9 mGy. DLP: 461 mGy-cm.mGy. LIMITATIONS: None. FINDINGS: LOWER CHEST: No significant findings. No nodules or infiltrates. NON-CONTRASTED LIVER, SPLEEN, ADRENALS: Evaluation limited by lack of IV contrast. No identified sign ificant masses. PANCREAS: No masses. No peripancreatic inflammatory changes. GALLBLADDER: No identified stones by CT criteria. No inflammatory changes to suggest cholecystitis. RIGHT KIDNEY AND URETER: No suspicious masses. Assessment limited by lack of IV contrast. No signif icant calcifications. Mild dilatation of the renal pelvis. Inflammatory changes in the perirenal s pace and proximal ureter. No visualized ureteral or bladder calculus. LEFT KIDNEY AND URETER: No suspicious masses. Assessment limited by lack of IV contrast. No signifi cant calcifications. No hydronephrosis or hydroureter. AORTA AND RETROPERITONEUM: No aneurysm. No retroperitoneal masses or adenopathy. BOWEL AND PERITONEAL CAVITY: No obvious masses or inflammatory changes. No free fluid. APPENDIX: Not visualized. PELVIS, BLADDER, AND ABDOMINAL WALL:No abnormal masses. No free fluid. Bladder normal. BONES: No significant findings. OTHER: No other significant finding. IMPRESSION: Inflammatory changes in the right kidney and proximal ureter, most likely due to recent stone passage or possibly pyelonephritis. Recommend correlation with urinalysis. COMMENT: Quality ID # [id number]: Final reports with documentation of one or more dose reduction techniques (e.g., Automated exposure control, adjustment of the mA and/or kV according to patient size, use of iterative reconstruction technique) TECHNICAL DOCUMENTATION: JOB ID: [id number] 2010 [employer]- All Rights Reserved Reading location - IP/workstation name: [email or web address]
[2019-07-29 13:31] LABS: AMORPHOUS SEDIMENT,URINE TRACE /HPF; APPEARANCE,URINE CLOUDY; BILIRUBIN,URINE NEGATIVE (NEGATIVE); COLOR,URINE ORANGE; GLUCOSE, URINE NEGATIVE (NEGATIVE); KETONES,URINE NEGATIVE (NEGATIVE); LEUKOCYTE ESTERASE,URINE SMALL (NEGATIVE); NITRITE,URINE POSITIVE (NEGATIVE); PROTEIN,URINE 100 mg/dL (NEGATIVE); URINE SPECIFIC GRAVITY 1.012
[2019-07-29] MEDS ORDERED: CEFTRIAXONE 1 GM/D5W RTU 1 GM/50 ML RTUPB IV ONE (13:38)
[2019-07-29 14:30] LABS: HEMATOCRIT 37.9 % (36.0-47.0); HEMOGLOBIN 13.4 g/dL (12.0-15.5); MEAN CORPUSCULAR HEMOGLOBIN 35.4 pg (27.0-33.4); MEAN CORPUSCULAR HGB CONC 35.3 g/dL (32.0-36.0); MEAN CORPUSCULAR VOLUME 100 fl (80-97); PLATELET COUNT 170 10^3/uL (150-450); RED BLOOD COUNT 3.78 10^6/uL (3.72-5.28); RED CELL DISTRIBUTION WIDTH 13.9 % (11.5-14.0)
[2019-07-29 14:43] LABS: ALBUMIN 3.9 g/dL (3.5-5.0); ALKALINE PHOSPHATASE 94 U/L (38-126); ANION GAP 8 (5-19); ASPARTATE AMINO TRANSFERASE 33 U/L (14-36); BILIRUBIN,TOTAL 1.1 mg/dL (0.2-1.3); BLOOD UREA NITROGEN 7 mg/dL (7-20); CALCIUM 9.1 mg/dL (8.4-10.2); CARBON DIOXIDE 24 mmol/L (22-30); CHLORIDE 102 mmol/L (98-107); GLUCOSE 105 mg/dL (75-110); POTASSIUM 3.7 mmol/L (3.6-5.0); TOTAL PROTEIN 6.8 g/dL (6.3-8.2)
[2019-07-29 15:06] LABS: ABSOLUTE LYMPHOCYTES# (MANUAL) 0.8 10^3/uL (0.5-4.7); BASOPHILS % (MANUAL) 0 % (0-2); EOSINOPHILS % (MANUAL) 0 % (0-6); LYMPHOCYTES % (MANUAL) 5 % (13-45); MONOCYTES % (MANUAL) 6 % (3-13); PLATELET COMMENT ADEQUATE; SEGMENTED NEUTROPHILS % (MAN) 89 % (42-78); TOTAL CELLS COUNTED 100
[2019-07-29 15:33] VITALS: BP 103/59
== END 2019-07-29 15:33 | disposition home or self-care (01) ==
LOC: ER 12:40
DX: N12 Tubulo-interstitial nephritis, not specified as acute or chronic (principal); R10.11 Right upper quadrant pain; R10.811 Right upper quadrant abdominal tenderness; R10.9 Unspecified abdominal pain; R11.0 Nausea; F17.200 Nicotine dependence, unspecified, uncomplicated; J45.909 Unspecified asthma, uncomplicated; Z87.892 Personal history of anaphylaxis; Z88.8 Allergy status to other drugs, medicaments and biological substances
CPT/HCPCS: 99284; 96372; 96365; 36415; 87086; 83690; 85025; 87088; 80053; 81001; 87186; 74176; J1885; J7030; J0696

== ENCOUNTER 2020-01-01 03:05 | Emergency (ER) | payer SELFPAY ==
[2020-01-01 03:14] VITALS: BP 134/109
[2020-01-01] MEDS ORDERED: NORMAL SALINE 1000 ML 1,000 ML IV ONE ×2 (03:25→05:48)
[2020-01-01] MEDS ORDERED: ONDANSETRON HCL INJ/PF 4 MG/2 ML SDV IV ONE (03:27)
[2020-01-01 03:58] LABS: ABSOLUTE BASOPHILS # (AUTO) 0.1 10^3/uL (0.0-0.2); ABSOLUTE EOSINOPHILS # (AUTO) 0.3 10^3/uL (0.0-0.6); ABSOLUTE LYMPHOCYTES (AUTO) 2.6 10^3/uL (0.5-4.7); ABSOLUTE MONOCYTES (AUTO) 0.6 10^3/uL (0.1-1.4); ABSOLUTE NEUT (AUTO) 8.6 10^3/uL (1.7-8.2); BASOPHILS % (AUTO) 0.8 % (0-2); EOSINOPHILS % (AUTO) 2.8 % (0-6); HEMATOCRIT 41.5 % (36.0-47.0); HEMOGLOBIN 14.1 g/dL (12.0-15.5); LYMPHOCYTES % (AUTO) 21.1 % (13-45); MEAN CORPUSCULAR HGB CONC 33.9 g/dL (32.0-36.0); MEAN CORPUSCULAR VOLUME 103 fl (80-97); MONOCYTES % (AUTO) 5.2 % (3-13); PLATELET COUNT 241 10^3/uL (150-450); RED BLOOD COUNT 4.02 10^6/uL (3.72-5.28); RED CELL DISTRIBUTION WIDTH 13.7 % (11.5-14.0); SEGMENTED NEUTROPHILS % (AUTO) 70.1 % (42-78); TOTAL CELLS COUNTED % (AUTO) 100 %; WHITE BLOOD COUNT 12.2 10^3/uL (4.0-10.5)
--- NOTE | 2020-01-01 04:13 | ER Document Report ---
Entered by JUAN JOSE PERDOMO SCRIBE 01/01/20 0315 Acting as scribe for:ANNA HUTCHISON IV, MD ED Substance Abuse / Acc. OD - General Chief Complaint: ETOH Abuse Stated Complaint: ETOH Time Seen by Provider: 01/01/20 03:09 Mode of Arrival: Medic Information source: Emergency Med Personnel Notes: This 39 year old female patient brought in by EMS presents to the ED today with complaints of ETOH abuse. Patient states "I drink too much" as the reason why she is here. Patient is very intoxicated, tearful, and incomprehensible, so HPI is limited and ROS is unobtainable. PHMHx is obtained from previous records. TRAVEL OUTSIDE OF THE [place] IN LAST 30 DAYS: No - Related Data Allergies/Adverse Reactions: promethazine HCl [From Phenergan] Allergy (Severe, Verified 12/28/17 19:43) Anaphylaxis Past Medical History - General Information source: [facility] Records - Social History Smoking Status: Current Every Day Smoker Smoking Education Provided: No Frequency of alcohol use: Heavy Family History: Reviewed & Not Pertinent, Malignancy, Thyroid Disfunction Pulmonary Medical History: Reports: Hx Asthma Neurological Medical History: Reports: Hx Migraine GI Medical History: Reports: Hx Gastroesophageal Reflux Disease Musculoskeletal Medical History: Reports Hx Arthritis, Reports Hx Musculoskeletal Trauma Skin Medical History: Reports Hx Cellulitis, Reports Hx MRSA Traumatic Medical History: Reports: Hx Fractures - Jaw Infectious Medical History: Reports: Hx MRSA Past Surgical History: Reports: Hx Appendectomy, Hx Section - x2, Hx Nose Surgery - Sinus surgery, Hx Tubal Ligation - Immunizations Hx Diphtheria, Pertussis, Tetanus Vaccination: Yes Review of Systems - Review of Systems -: Yes ROS unobtainable due to patient's medical condition - Patient is too intoxicated to be comprehensible Physical Exam - Vital signs Vitals: Temp Pulse Resp BP Pulse Ox 97.6 F 85 20 134/109 H 97 01/01/20 03:12 01/01/20 03:12 01/01/20 03:12 01/01/20 03:12 01/01/20 03:12 - General General appearance: Alert, Other - Disheveled appearance, smells of byprdoucts of ETOH metabolism - HEENT Head: Normocephalic, Atraumatic Eyes: Normal Pupils: PERRL - Respiratory Respiratory status: No respiratory distress Chest status: Nontender Breath sounds: Normal Chest palpation: Normal - Cardiovascular Rhythm: Regular, Tachycardia Heart sounds: Normal auscultation Murmur: No Friction rub: No Gallop: None auscultated - Abdominal Inspection: Normal Distension: No distension Bowel sounds: Normal Tenderness: Nontender - Abdomen soft Organomegaly: No organomegaly - Back Back: Normal, Nontender - Extremities General upper extremity: Normal inspection General lower extremity: Normal inspection - Neurological [place] Coma Scale Eye Opening: Spontaneous [place] Coma Scale Verbal: Incomprehensible [place] Coma Scale Motor: Obeys Commands [place] Coma Scale Total: 12 Speech: No: Normal - Slurred speech - Psychological Associated symptoms: Labile, Tearful - Skin Skin Temperature: Warm Skin Moisture: Dry Skin Color: Normal Course - Re-evaluation Re-evalutation: 01/01/20 06:05 Results of ED MSE discussed with patient. All questions were answered prior to discharge. Emergency signs and symptoms, reasons to return to the emergency department discussed with patient. - Vital Signs Vital signs: Temp Pulse Resp BP Pulse Ox 97.6 F 85 20 134/109 H 97 01/01/20 03:12 01/01/20 03:12 01/01/20 03:12 01/01/20 03:12 01/01/20 03:12 - Laboratory Result Diagrams: 01/01/20 03:29 01/01/20 03:29 Laboratory results interpreted by me: 01/01/20 01/01/20 01/01/20 03:29 03:29 04:28 WBC 12.2 H MCV 103 H MCH 35.0 H Absolute Neuts (auto) 8.6 H Chloride 112 H Ur Leukocyte Esterase TRACE H Discharge - Discharge Clinical Impression: Acute alcohol intoxication Qualifiers: Complication of substance-induced condition: uncomplicated Qualified Code(s): F10.920 - Alcohol use, unspecified with intoxication, uncomplicated Condition: Stable Disposition: HOME, SELF-CARE Additional Instructions: Return to the Emergency Department without delay if any worse. HOME CARE INSTRUCTIONS & INFORMATION: Thank you for choosing us for your medical needs. We hope you're satisfied with the care you received. After you leave, you must properly care for your problem and, at the same time, observe its progress. Any condition can change. Some illnesses can change rapidly over hours or days. If your condition worsens, return to the Emergency Department or see your physician promptly. ABOUT YOUR X-RAYS AND EKG'S: If you had an EKG or X-rays taken, they have been read by the Emergency Physician. The X-rays and EKG's will also be read by a Radiologist or Customer Service Consultant within 24 hours. If discrepancies are noted, you will be notified by telephone. Please be certain the ED has a correct telephone number & address where you can be reached. Also, realize that some fractures or abnormalities do not show up on initial X-rays. If your symptoms continue, see your physician. ABOUT YOUR LABORATORY TEST: If you had laboratory tests, the results have been reviewed by the Emergency Physician. Some test results (for example cultures) may not be available for several days. You will be contacted if any test result shows you need additional treatment. Please be certain the ED has a correct telephone number and address where you can be reached. ABOUT YOUR MEDICATIONS: You will receive instructions on how to take your medicine on the prescription label you receive. Additional information may be provided by the Pharmacy. If you have questions afterwards, call the ED for clarification or further instructions. Some prescribed medications may cause drowsiness. Do not perform tasks such as driving a car or operating machinery without consulting your Pharmacist. If you feel you need a refill of pain medication, your condition will need re-evaluation. Please do not call for a refill of any medication. ABOUT YOUR SIGNATURE: Signature of this document acknowledges to followin. Understanding that you received emergency treatment and that you may be released before al medical problems are known or treated. Please be certain the ED has a correct phone number & address where you can be reached. 2. Acknowledgement that you will arrange for follow-up care as recommended. 3. Authorization for the Emergency Physician to provide information to your follow-up Physician in order to maximize your care. AT ANY TIME, IF YOUR SYMPTOMS CHANGE SIGNIFICANTLY OR WORSEN OR YOU DEVELOP NEW SYMPTOMS, RETURN TO THE EMERGENCY DEPARTMENT IMMEDIATELY FOR RE-EVALUATION. OUR GOAL IS TO PROVIDE EXCELLENT MEDICAL CARE! WE HOPE THAT WE HAVE MET YOUR EXPECTATIONS DURING YOUR EMERGENCY DEPARTMENT VISIT AND THAT YOU FEEL YOU HAVE RECEIVED EXCELLENT CARE! Acute Alcohol Intoxication Your evaluation revealed very high levels of alcohol. You can from drinking a large amount of alcohol rapidly! Further, there's the risk of falls, traffic accidents, and fights. A high portion (about 50 percent) of the serious injuries seen in hospital emergency rooms are caused by alcohol. Alcohol overdosage is usually due to an underlying emotional or psychiatric problem. You may benefit from counselling. If "binge" drinking is an ongoing problem for you, or if you drink ANY AMOUNT of alcohol EVERY day, you most likely have a tendency to alcoholism. You should avoid alcohol totally. We can refer you for treatment. Persons with alcohol problems are often also prone to other addictions -- you should discuss any use of medications or drugs with the doctor. You should be watched at home for the next several hours by someone who has not been drinking. Get extra fluids for the next 24 hours. Call the doctor if there is repeated vomiting, increasing headache, decreasing level of alertness, or any other worsening. Referrals: GUILLERMO MCKEON MD [HONORARY] - Follow up as needed I personally performed the services described in the documentation, reviewed and edited the documentation which was dictated to the scribe in my presence, and it accurately records my words and actions.
[2020-01-01 04:21] LABS: ALBUMIN 4.2 g/dL (3.5-5.0); ALCOHOL 205 mg/dL (NONE DETECTED); ALKALINE PHOSPHATASE 89 U/L (38-126); ANION GAP 8 (5-19); ASPARTATE AMINO TRANSFERASE 23 U/L (14-36); BILIRUBIN,DIRECT 0.2 mg/dL (0.0-0.4); BILIRUBIN,TOTAL 0.4 mg/dL (0.2-1.3); BLOOD UREA NITROGEN 10 mg/dL (7-20); CALCIUM 8.5 mg/dL (8.4-10.2); CARBON DIOXIDE 22 mmol/L (22-30); CHLORIDE 112 mmol/L (98-107); GLUCOSE 97 mg/dL (75-110); POTASSIUM 3.7 mmol/L (3.6-5.0); TOTAL PROTEIN 6.6 g/dL (6.3-8.2)
[2020-01-01 04:51] LABS: APPEARANCE,URINE CLEAR; BILIRUBIN,URINE NEGATIVE (NEGATIVE); COLOR,URINE COLORLESS; GLUCOSE, URINE NEGATIVE (NEGATIVE); KETONES,URINE NEGATIVE (NEGATIVE); LEUKOCYTE ESTERASE,URINE TRACE (NEGATIVE); NITRITE,URINE NEGATIVE (NEGATIVE); PROTEIN,URINE NEGATIVE (NEGATIVE); UROBILINOGEN,URINE NEGATIVE mg/dL (<2.0)
[2020-01-01] MEDS ORDERED: NICOTINE 7 MG/24 HR PATCH.TD24 TD ONE (05:47)
[2020-01-01] MEDS ORDERED: NICOTINE 21 MG/24 HR PATCH.TD24 ONE (05:53)
[2020-01-01 06:09] LABS: URINE AMPHETAMINES SCREEN NEGATIVE; URINE BARBITURATES SCREEN NEGATIVE; URINE BENZODIAZEPINES SCREEN NEGATIVE; URINE MARIJUANA (THC) SCREEN NEGATIVE; URINE METHADONE SCREEN NEGATIVE; URINE PHENCYCLIDINE SCREEN NEGATIVE
[2020-01-01 06:10] LABS: URINE COCAINE SCREEN UNCONFIRMED POSITIVE
== END 2020-01-01 06:57 | disposition home or self-care (01) ==
LOC: ER 03:05
DX: F10.120 Alcohol abuse with intoxication, uncomplicated (principal); F17.200 Nicotine dependence, unspecified, uncomplicated; J45.909 Unspecified asthma, uncomplicated; Z88.8 Allergy status to other drugs, medicaments and biological substances; Z87.892 Personal history of anaphylaxis
CPT/HCPCS: 99284; 96361; 96374; 36415; 80307 ×2; 85025; 80053; 81001; J2405; J7030